=== PATIENT | male | born 1945 | race Caucasian/White ===

== ENCOUNTER 2019-12-25 08:42 | Emergency (ER) | payer MEDICARE, OTHER ==
[~2019-12-25] VITALS: Ht 177.8 cm; Wt 84.0 kg
[~2019-12-25 08:42] MED LIST: LEVO750T31 PO
[2019-12-25 09:03] VITALS: BP 156/105
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
--- NOTE | 2019-12-25 09:49 | RAD ---
ELBOW RIGHT 3V History: Nonhealing wound elbow. Technique: 3 views right elbow. Comparison: None. Findings: Internal fixation olecranon fracture with posterior plate and multiple screws. Fracture line is not evident. No significant elbow joint effusion. Dystrophic calcination within the region of the distal triceps insertion. No acute fracture. Impression: 1. Internal fixation prior olecranon fracture. Electronically signed by: Guero Pickering DO (12/25/2019 9:46 AM) [id number]
[2019-12-25] MEDS ORDERED: CLIN150C14 PO (09:57)
== END 2019-12-25 10:35 | disposition home or self-care (01) ==
LOC: ER 08:42
DX: L03.113 Cellulitis of right upper limb (principal); I10 Essential (primary) hypertension; K21.9 Gastro-esophageal reflux disease without esophagitis; Z98.890 Other specified postprocedural states; E78.00 Pure hypercholesterolemia, unspecified
CPT/HCPCS: 73080; 99283

== ENCOUNTER 2021-11-18 13:32 | Emergency (ER) | payer MEDICARE ==
[~2021-11-18] VITALS: Ht 177.8 cm; Wt 85.0 kg
[~2021-11-18 13:32] MED LIST changes: +CLIN150C16 PO
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
[2021-11-18 14:15] LABS: BASO # 0.1 x10^3/uL (0.0-0.2); BASO % 1 % (0-3); EOS # 0.3 x10^3/uL (0.0-0.7); EOS % 6 % (0-3); HEMATOCRIT 36.3 % (39.0-53.0); HEMOGLOBIN 12.4 g/dL (13.0-17.5); LYMPH # 1.5 x10^3/uL (1.0-4.8); LYMPH % 34 % (24-48); MEAN CORPUSCULAR HEMOGLOBIN 34 pg (25-35); MEAN CORPUSCULAR HGB CONC 34 g/dL (31-37); MEAN CORPUSCULAR VOLUME 98 fL (79-100); MONO # 0.4 x10^3/uL (0.0-1.1); MONO % 10 % (0-9); NEUT # 2.1 x10^3/uL (1.8-7.7); NEUT % 49 % (31-73); PLATELET COUNT 225 x10^3/uL (140-400); RED BLOOD COUNT 3.69 x10^6/uL (4.30-5.70); RED CELL DISTRIBUTION WIDTH 14.1 % (11.5-14.5); WHITE BLOOD COUNT 4.3 x10^3/uL (4.0-11.0)
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
[2021-11-18 14:25] LABS: CALCIUM 8.8 mg/dL (8.5-10.1); CREATININE 0.9 mg/dL (0.7-1.3); GFR 82.5; POTASSIUM 4.6 mmol/L (3.5-5.1)
[2021-11-18] MEDS ORDERED: LIDOCAINE 1%/EPI 1:100,000 20 ML VIAL. INJ ONE (14:30)
[2021-11-18 14:31] LABS: ALBUMIN 3.6 g/dL (3.4-5.0); ALBUMIN/GLOBULIN RATIO 0.9 (1.0-1.7); TOTAL BILIRUBIN 0.6 mg/dL (0.2-1.0); TOTAL PROTEIN 7.5 g/dL (6.4-8.2)
[2021-11-18 15:41] VITALS: BP 133/63
[2021-11-18] MEDS ORDERED: BACITRACIN TOPICAL OINT PACKET. TP ONE (15:45)
== END 2021-11-18 15:58 | disposition home or self-care (01) ==
LOC: ER 13:32
DX: S01.01XA Laceration without foreign body of scalp, initial encounter (principal); I10 Essential (primary) hypertension; K21.9 Gastro-esophageal reflux disease without esophagitis; E78.00 Pure hypercholesterolemia, unspecified; N40.0 Benign prostatic hyperplasia without lower urinary tract symptoms; Y28.8XXA Contact with other sharp object, undetermined intent, initial encounter; Y93.89 Activity, other specified; Y92.89 Other specified places as the place of occurrence of the external cause; Y99.8 Other external cause status
CPT/HCPCS: 12002; 36415; 70450; 72125; 80053; 85025; 85610; 85730; 99285; J3490

== ENCOUNTER 2021-11-27 15:51 | Emergency (ER) | payer MEDICARE ==
[~2021-11-27] VITALS: Ht 175.3 cm; Wt 72.0 kg
[2021-11-27 15:52] VITALS: BP 128/70
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
== END 2021-11-27 16:15 | disposition home or self-care (01) ==
LOC: ER 15:51
DX: S01.81XD Laceration without foreign body of other part of head, subsequent encounter (principal); K21.9 Gastro-esophageal reflux disease without esophagitis; E78.00 Pure hypercholesterolemia, unspecified; I10 Essential (primary) hypertension; N40.0 Benign prostatic hyperplasia without lower urinary tract symptoms; X58.XXXD Exposure to other specified factors, subsequent encounter
CPT/HCPCS: 99281; 99284

== ENCOUNTER 2022-01-12 18:59 | Emergency (ER) | payer MEDICARE ==
[~2022-01-12] VITALS: Ht 175.3 cm; Wt 84.0 kg
--- NOTE | 2022-01-12 20:56 | RAD ---
XR ABDOMEN 2V Clinical Indication: Reason: bloating / Spl. Instructions: / History: Comparison: None. Findings: The lung bases are clear. No intraperitoneal free air is identified. There is no dilated small bowel. There is scattered air and stool in the colon. No obvious organomegaly. No radiopaque calculus or fo reign body. There is degenerative spondylosis of the thoracolumbar spine. IMPRESSION: Nonobstructive bowel gas pattern. Electronically signed by: Montez Sher MD (01/12/2022 8:53 PM) [facility]
[2022-01-12] MEDS ORDERED: SIMETHICONE 80 MG TAB.CHEW PO STA (21:04)
[2022-01-12] MEDS ORDERED: MAGNESIUM CITRATE 296 ML SOLUTION. PO ONE (21:15)
[2022-01-12] MEDS ORDERED: POLY119P4 PO (21:34)
--- NOTE | 2022-01-12 21:34 | PHYS DOC ---
Past Medical History Past Medical History: GERD, High Cholesterol, Hypertension, Other Additional Past Medical Histor: BPH Past Surgical History: Tonsillectomy, Other Additional Past Surgical Histo: WRIST Smoking Status: Never Smoker Alcohol Use: None Drug Use: None General Adult EDM: Chief Complaint: MULTIPLE COMPLAINTS HPI: HPI: Patient is a 76 year old male who presents to the ED today complaining of abdominal bloating/gas, symptoms for 2 days. Denies any pain. Denies any nausea, vomiting. Reports last bowel movement was yesterday and normal. Patient is also complaining of a rash on his left thigh, symptoms began 4 days ago. Denies any new soaps, laundry detergents or any source for this rash. Review of Systems: Review of Systems: Constitutional: Denies fever or chills. [] Eyes: Denies change in visual acuity. [] HENT: Denies nasal congestion or sore throat. [] Respiratory: Denies cough or shortness of breath. [] Cardiovascular: Denies chest pain or edema. [] GI: Reports abdominal bloating, denies nausea, vomiting, bloody stools or diarrhea. [] : Denies dysuria. [] Musculoskeletal: Denies back pain or joint pain. [] Integument: Reports rash on the left thigh Neurologic: Denies headache, focal weakness or sensory changes. [] Endocrine: Denies polyuria or polydipsia. [] Psychiatric: Denies depression or anxiety. [] Heart Score: C/O Chest Pain: N/A Risk Factors: Risk Factors: DM, Current or recent (<one month) smoker, HTN, HLP, family history of CAD, obesity. Risk Scores: Score 0 - 3: 2.5% MACE over next 6 weeks - Discharge Home Score 4 - 6: 20.3% MACE over next 6 weeks - Admit for Clinical Observation Score 7 - 10: 72.7% MACE over next 6 weeks - Early Invasive Strategies Current Medications: Current Medications Medications (Trade) Dose Ordered Sig/Nura Start Time Stop Time Status Last Admin Dose Admin Magnesium Citrate (Citroma) 296 ml 1X ONCE 01/12/22 21:15 01/12/22 21:16 DC 01/12/22 21:25 296 ML Simethicone (Gas-X) 80 mg 1X STAT 01/12/22 21:04 01/12/22 21:07 DC 01/12/22 21:25 80 MG Allergies: Allergies: Allergies Coded Allergies Type Severity Reaction Last Updated Verified No Known Drug Allergies 03/09/18 No Physical Exam: PE: Constitutional: Well developed, well nourished, no acute distress, non-toxic appearance. [] HENT: Normocephalic, atraumatic, bilateral external ears normal, oropharynx moist, no oral exudates, nose normal. [] Eyes: PERRLA, EOMI, conjunctiva normal, no discharge. [] Neck: Normal range of motion, no tenderness, supple, no stridor. [] Cardiovascular:Heart rate regular rhythm, no murmur [] Lungs & Thorax: Bilateral breath sounds clear to auscultation [] Abdomen: Bloated abdomen. Bowel sounds normal, soft, no tenderness, no masses, no pulsatile masses. [] Skin: Left thigh with scattered areas of crusted noninfected dark rashes. Back: No tenderness, no CVA tenderness. [] Extremities: No tenderness, no cyanosis, no clubbing, ROM intact, no edema. [] Neurologic: Alert and oriented X 3, normal motor function, normal sensory function, no focal deficits noted. [] Psychologic: Affect normal, judgement normal, mood normal. [] Current Patient Data: Vital Signs: Vital Signs Date Time Temp Pulse Resp B/P (MAP) Pulse Ox O2 Delivery O2 Flow Rate FiO2 01/12/22 19:25 98.2 84 18 149/100 (116) 97 Room Air 98.2 EKG: EKG: [] Radiology/Procedures: Radiology/Procedures: [] Course & Med Decision Making: Course & Med Decision Making Pertinent Labs and Imaging studies reviewed. (See chart for details) This a 76-year-old male patient presenting to the ED today complaining of abdominal bloating/gas, symptoms since yesterday, also complaining of a rash on the left thigh for 4 days. Recommended he follows up with molding machine operator helper for this rash. Provided from Synalar cream and recommending Benadryl. Abdomen supine and upright x-rays noted for gas and constipation. Discussed constipation prevention, management and OTC remedies. Encouraged to increase fiber intake as well as water intake Dragon Disclaimer: Dragfam Disclaimer: This electronic medical record was generated, in whole or in part, using a voice recognition dictation system. Departure Departure Impression: Primary Impression: Rash Additional Impression: Constipation Qualified Codes: K59.00 - Constipation, unspecified Disposition: HOME / SELF CARE / HOMELESS Condition: STABLE Referrals: Abby EDWARDS MD (PCP) follow up with a molding machine operator helper and your primary care doctor in 1 week Patient Instructions: Constipation, Adult, Rash Additional Instructions: You have a rash on the left leg please follow up with a molding machine operator helper in one 1-2 weeks. Please increase you dietary fiber intake to help reduce constipation. Take Miralax to reduce constipation. Scripts Triamcinolone Acetonide (TRIAMCINOLONE ACETONIDE 0.1% CREAM) 15 Gm Cream..g. 1 ZAC TP BID, #30 GM Prov: MEENA BLANCHARD APRN 01/12/22 Polyethylene Glycol 3350 (MIRALAX) 119 Gm Powder 17 GM PO DAILY for constipation, #255 GM 0 Refills dissolve in water Prov: MEENA BLANCHARD APRN 01/12/22 MEENA BLANCHARD APRN Jan 12, 2022 21:34
[2022-01-12] MEDS ORDERED: TRIA15CR3 TP (21:48)
[2022-01-12 22:00] VITALS: BP 175/72
== END 2022-01-12 22:10 | disposition home or self-care (01) ==
LOC: ER 18:59
DX: K59.00 Constipation, unspecified (principal); R21 Rash and other nonspecific skin eruption; K21.9 Gastro-esophageal reflux disease without esophagitis; E78.00 Pure hypercholesterolemia, unspecified; I10 Essential (primary) hypertension
CPT/HCPCS: 74021; 99285-25

== ENCOUNTER 2022-01-16 10:08 | Inpatient (IN) | payer MEDICARE ==
[~2022-01-16] VITALS: Ht 175.3 cm; Wt 84.0 kg
[~2022-01-16 10:08] MED LIST changes: +POLY119P4 PO; +TRIA15CR3 TP
--- NOTE | 2022-01-16 12:14 | ED.ADGEN ---
Past Medical History Past Medical History: GERD, High Cholesterol, Hypertension, Other Additional Past Medical Histor: BPH Past Surgical History: Tonsillectomy, Other Additional Past Surgical Histo: WRIST Smoking Status: Never Smoker Alcohol Use: None Drug Use: None General Adult EDM: Chief Complaint: CONSTIPATION HPI: HPI: Patient is a 76 year old male presenting for constipation. Patient was seen here 4 days ago for the same. Was sent home with magnesium citrate and MiraLAX. Patient states he has had some liquidy stools but nothing solid. States he has not a lot of gas intermittent distention. Has had decreased appetite since symptoms are started, but no vomiting. Patient states the lump in his left groin is concerned he might have a hernia. Review of Systems: Review of Systems: All other systems within normal limits except for as noted in the HPI Current Medications: Current Medications Medications (Trade) Dose Ordered Sig/Nura Start Time Stop Time Status Last Admin Dose Admin Info (CONTRAST GIVEN -- Rx MONITORING) 1 each PRN DAILY PRN 01/16/22 13:00 01/18/22 12:59 Iohexol (Omnipaque 300 Mg/ml) 75 ml 1X ONCE 01/16/22 13:00 01/16/22 13:03 DC 01/16/22 13:27 75 ML Allergies: Allergies: Allergies Coded Allergies Type Severity Reaction Last Updated Verified No Known Drug Allergies 03/09/18 No Physical Exam: PE: Constitutional: Well developed, well nourished, no acute distress, non-toxic appearance. [] HENT: Normocephalic, atraumatic, bilateral external ears normal, nose normal. [] Eyes: PERRLA, conjunctiva normal, no discharge. [] Neck: No rigidity, supple, no stridor. [] Cardiovascular: Regular rate and rhythm, brisk cap refill [] Lungs & Thorax: Non labored symmetric respirations, no tachypnea or respiratory distress [] Abdomen: Soft, nondistended no point tenderness on exam, large erythematous mass in left inguinal area, with erythema extending to testicles and penis. Skin: Warm, dry, no erythema, no rash. [] Back: Unremarkable Extremities: No deformities, range of motion grossly intact, no lower extremity edema [] Neurologic: Alert and oriented X 3, no focal deficits noted. [] Psychologic: Affect normal, judgement normal, mood normal. [] Current Patient Data: Labs: Laboratory Tests Test 01/16/22 12:35 01/16/22 13:10 White Blood Count 9.2 x10^3/uL (4.0-11.0) Red Blood Count 3.59 x10^6/uL (4.30-5.70) L Hemoglobin 11.9 g/dL (13.0-17.5) L Hematocrit 34.5 % (39.0-53.0) L Mean Corpuscular Volume 96 fL (79-100) Mean Corpuscular Hemoglobin 33 pg (25-35) Mean Corpuscular Hemoglobin Concent 34 g/dL (31-37) Red Cell Distribution Width 13.9 % (11.5-14.5) Platelet Count 310 x10^3/uL (140-400) Neutrophils (%) (Auto) 71 % (31-73) Lymphocytes (%) (Auto) 15 % (24-48) L Monocytes (%) (Auto) 13 % (0-9) H Eosinophils (%) (Auto) 1 % (0-3) Basophils (%) (Auto) 1 % (0-3) Neutrophils # (Auto) 6.5 x10^3/uL (1.8-7.7) Lymphocytes # (Auto) 1.4 x10^3/uL (1.0-4.8) Monocytes # (Auto) 1.2 x10^3/uL (0.0-1.1) H Eosinophils # (Auto) 0.1 x10^3/uL (0.0-0.7) Basophils # (Auto) 0.1 x10^3/uL (0.0-0.2) Sodium Level 131 mmol/L (136-145) L Potassium Level 3.6 mmol/L (3.5-5.1) Chloride Level 96 mmol/L (98-107) L Carbon Dioxide Level 30 mmol/L (21-32) Anion Gap 5 (6-14) L Blood Urea Nitrogen 11 mg/dL (8-26) Creatinine 1.0 mg/dL (0.7-1.3) Estimated GFR (Cockcroft-Gault) 73.0 BUN/Creatinine Ratio 11 (6-20) Glucose Level 110 mg/dL (70-99) H Lactic Acid Level 1.0 mmol/L (0.4-2.0) Calcium Level 8.7 mg/dL (8.5-10.1) Phosphorus Level 3.3 mg/dL (2.6-4.7) Magnesium Level 2.4 mg/dL (1.8-2.4) Total Bilirubin 1.0 mg/dL (0.2-1.0) Aspartate Amino Transferase (AST) 45 U/L (15-37) H Alanine Aminotransferase (ALT) 39 U/L (16-63) Alkaline Phosphatase 73 U/L (46-116) Total Protein 8.0 g/dL (6.4-8.2) Albumin 3.3 g/dL (3.4-5.0) L Albumin/Globulin Ratio 0.7 (1.0-1.7) L Lipase 78 U/L (73-393) Urine Collection Type Unknown Urine Color Yellow Urine Clarity Clear Urine pH 7.0 (<5.0-8.0) Urine Specific [place] 1.010 (1.000-1.030) Urine Protein Negative mg/dL (NEG-TRACE) Urine Glucose (UA) Negative mg/dL (NEG) Urine Ketones (Stick) Negative mg/dL (NEG) Urine Blood Trace (NEG) Urine Nitrite Negative (NEG) Urine Bilirubin Negative (NEG) Urine Urobilinogen Dipstick 0.2 mg/dL (0.2 mg/dL) Urine Leukocyte Esterase Negative (NEG) Urine RBC 0 /HPF (0-2) Urine WBC 0 /HPF (0-4) Urine Bacteria 0 /HPF (0-FEW) Laboratory Tests 01/16/22 12:35 Laboratory Tests 01/16/22 12:35 Vital Signs: Vital Signs Date Time Temp Pulse Resp B/P (MAP) Pulse Ox O2 Delivery O2 Flow Rate FiO2 01/16/22 13:37 74 167/71 (103) 97 Room Air 01/16/22 11:49 20 01/16/22 11:13 98.6 98.6 EKG: EKG: [] Heart Score: C/O Chest Pain: No Risk Factors: Risk Factors: DM, Current or recent (<one month) smoker, HTN, HLP, family history of CAD, obesity. Risk Scores: Score 0 - 3: 2.5% MACE over next 6 weeks - Discharge Home Score 4 - 6: 20.3% MACE over next 6 weeks - Admit for Clinical Observation Score 7 - 10: 72.7% MACE over next 6 weeks - Early Invasive Strategies Radiology/Procedures: Radiology/Procedures: [facility] [address] [place], [place] [id number] IMAGING REPORT Signed PATIENT: TATI VARGAS ACCOUNT: [id number] : 1945 LOCATION: ER AGE: 76 SEX: M EXAM STATUS: REG ER ORD. PHYSICIAN: PADMINI BELLAMY MD REASON: left inguinal hernia and testicle swelling, scan through testicles PROCEDURE: CT ABD PELV W/ IV CONTRST ONLY PQRS Compliance Statement: One or more of the following individualized dose reduction techniques were utilized for this examination: 1. Automated exposure control 2. Adjustment of the mA and/or kV according to patient size 3. Use of iterative reconstruction technique Exam performed: CT abdomen and pelvis with contrast HISTORY: Left inguinal hernia and testicular swelling. DATE OF SERVICE: 01/16/2022. COMPARISON: None available TECHNIQUE: Contiguous helical acquisitions are obtained through the abdomen and pelvis during intravenous administration of 75 cc of Omnipaque 300. Sagittal and coronal reformatted images are obtained and reviewed. FINDINGS: Pleural-based 9 mm nodularity left lung base (best seen on axial image 4/85). The right lung base is clear. The visualized heart appears normal. Tiny hiatal hernia. The liver, spleen and pancreas appears normal. Cholelithiasis. Both adrenal glands and bilateral kidneys are normal in size with symmetric excretion of contrast via both kidneys. There is no hydronephrosis or nephrolithiasis. Small bowel loops appear normal. There is scattered stool in the colon. Diffuse colonic diverticulosis. The urinary bladder is distended. No free fluid. There is a large left inguinal scrotal hernia containing a loop of colon without proximal dilatation. There is fluid in the pericardial sac with wall thickening and edema of the left hemiscrotum. There is also a tiny fat-containing right in guinal hernia. Interrogation of bone windows is unremarkable. There are spondylotic changes and multilevel degenerative disc changes. IMPRESSION: 1. Large left inguinal scrotal hernia containing a loop of colon with mild fluid and inflammatory changes as well as skin thickening of the left scrotum. Incarcerated hernia suspected. Correlate clinically. 2. Cholelithiasis. 3. A 9 mm nodularity left lung base. While this could be related to pleural thickening, however evaluation with dedicated CT chest may be obtained to rule out additional pulmonary nodules. Electronically signed by: Sharmin Graves MD (01/16/2022 2:04 PM) [facility] DICTATED and SIGNED BY: SHARMIN GRAVES MD DATE: 01/16/22 1354 [] Course & Med Decision Making: Course & Med Decision Making Pertinent Labs and Imaging studies reviewed. (See chart for details) Consult placed to general surgery, recommends admission to hospitalist and n.p. o. status [] Dragon Disclaimer: Dragon Disclaimer: This electronic medical record was generated, in whole or in part, using a voice recognition dictation system. Departure Departure Impression: Primary Impression: Incarcerated left inguinal hernia Disposition: ADMITTED INPATIENT Admitting Physician: ANDREW Condition: STABLE Referrals: Abby EDWARDS MD (PCP) PADMINI BELLAMY MD Jan 16, 2022 12:14
[2022-01-16 12:45] LABS: BASO # 0.1 x10^3/uL (0.0-0.2); BASO % 1 % (0-3); EOS # 0.1 x10^3/uL (0.0-0.7); EOS % 1 % (0-3); HEMATOCRIT 34.5 % (39.0-53.0); HEMOGLOBIN 11.9 g/dL (13.0-17.5); LYMPH # 1.4 x10^3/uL (1.0-4.8); LYMPH % 15 % (24-48); MEAN CORPUSCULAR HEMOGLOBIN 33 pg (25-35); MEAN CORPUSCULAR HGB CONC 34 g/dL (31-37); MEAN CORPUSCULAR VOLUME 96 fL (79-100); MONO # 1.2 x10^3/uL (0.0-1.1); MONO % 13 % (0-9); NEUT # 6.5 x10^3/uL (1.8-7.7); NEUT % 71 % (31-73); PLATELET COUNT 310 x10^3/uL (140-400); RED BLOOD COUNT 3.59 x10^6/uL (4.30-5.70); RED CELL DISTRIBUTION WIDTH 13.9 % (11.5-14.5); WHITE BLOOD COUNT 9.2 x10^3/uL (4.0-11.0)
[2022-01-16 12:53] LABS: CALCIUM 8.7 mg/dL (8.5-10.1); POTASSIUM 3.6 mmol/L (3.5-5.1)
[2022-01-16 12:58] LABS: ALBUMIN 3.3 g/dL (3.4-5.0); ALBUMIN/GLOBULIN RATIO 0.7 (1.0-1.7); MAGNESIUM 2.4 mg/dL (1.8-2.4); PHOSPHORUS 3.3 mg/dL (2.6-4.7)
[2022-01-16] MEDS ORDERED: CONTRAST GIVEN. MC PRN (13:00)
[2022-01-16] MEDS ORDERED: IOHEXOL 300 MG/ML 100ML VIAL. IV ONE (13:00)
--- NOTE | 2022-01-16 14:06 | RAD ---
PQRS Compliance Statement: One or more of the following individualized dose reduction techniques were utilized for this examinat ion: 1. Automated exposure control 2. Adjustment of the mA and/or kV according to patient size 3. Use of iterative reconstruction technique Exam performed: CT abdomen and pelvis with contrast HISTORY: Left inguinal hernia and testicular swelling. DATE OF SERVICE: 01/16/2022. COMPARISON: None available TECHNIQUE: Contiguous helical acquisitions are obtained through the abdomen and pelvis during intrave nous administration of 75 cc of Omnipaque 300. Sagittal and coronal reformatted images are obtained a nd reviewed. FINDINGS: Pleural-based 9 mm nodularity left lung base (best seen on axial image 4/85). The right lung base is clear. The visualized heart appears normal. Tiny hiatal hernia. The liver, spleen and pancreas appears normal. Cholelithiasis. Both adrenal glands and bilateral kidn eys are normal in size with symmetric excretion of contrast via both kidneys. There is no hydronephro sis or nephrolithiasis. Small bowel loops appear normal. There is scattered stool in the colon. Diffu se colonic diverticulosis. The urinary bladder is distended. No free fluid. There is a large left inguinal scrotal hernia containing a loop of colon without proximal dilatation. There is fluid in the pericardial sac with wall thickening and edema of the left hemiscrotum. There is also a tiny fat-containing right inguinal hernia. Interrogation of bone windows is unremarkable. T here are spondylotic changes and multilevel degenerative disc changes. IMPRESSION: 1. Large left inguinal scrotal hernia containing a loop of colon with mild fluid and inflammatory ch anges as well as skin thickening of the left scrotum. Incarcerated hernia suspected. Correlate clinic ally. 2. Cholelithiasis. 3. A 9 mm nodularity left lung base. While this could be related to pleural thickening, however eval uation with dedicated CT chest may be obtained to rule out additional pulmonary nodules. Electronically signed by: Sharmin Graves MD (01/16/2022 2:04 PM) [facility]
[2022-01-16 14:13] LABS: BILIRUBIN,URINE NEGATIVE (NEG); CLARITY,URINE CLEAR; COLOR,URINE YELLOW
[2022-01-16 14:14] LABS: BACTERIA,URINE 0 /HPF (0-FEW); NITRITE,URINE NEGATIVE (NEG); PROTEIN,URINE NEGATIVE (NEG-TRACE); RBC,URINE 0 /HPF (0-2); UROBILINOGEN,URINE 0.2 mg/dL (0.2 mg/dL); WBC,URINE 0 /HPF (0-4)
[2022-01-16] MEDS ORDERED: ONDANSETRON PF 4 MG/2 ML VIAL. IVP PRN ×2 (15:45→16:15)
[2022-01-16] MEDS ORDERED: MORPHINE SULFATE 4 MG/ML INJ. IVP PRN (15:45)
[2022-01-16] MEDS ORDERED: MORPHINE SULFATE 2 MG/ML INJ. IV PRN ×2 (16:15)
[2022-01-16] MEDS ORDERED: CALCIUM CARBONATE 500 MG TAB.CHEW PO PRN (16:15)
[2022-01-16] MEDS ORDERED: ELECTROLYTE (NON-ICU) PROTOCOL. MC PRN (16:15)
[2022-01-16] MEDS: IV NORMAL SALINE 1000ML BAG 1,000 ML IV SCH (16:55)
[2022-01-16 17:45] VITALS: BP 140/53
[2022-01-16] MEDS ORDERED: ATOR40TA59 PO (17:45)
[2022-01-16] MEDS ORDERED: PANT40TA6 PO (17:45)
[2022-01-16] MEDS ORDERED: TAMSULOSIN (17:45)
[2022-01-16] MEDS ORDERED: AMLO-186 PO (17:45)
[2022-01-16 17:48] LABS: INFLUENZA A PATIENT NEGATIVE (NEGATIVE); INFLUENZA B PATIENT NEGATIVE (NEGATIVE)
--- NOTE | 2022-01-16 18:29 | PDOC1 ---
History and Physical Date of Service: DOS: DATE: 01/16/22 TIME: 18:24 Chief Complaint: Chief Complain: constipation History of Present Illness: HPI: 76-year-old male presented today for constipation recently seen for the same given mag citrate, miralax. Some liquid stool nothing substantial. Decreased p.o. intake. Concerned about a lump in left groin. Imaging concerning for hernia in the left groin. Admitted. Surgery consult. Lab work pretty unremarkable Past Medical/Surgical History: PMH/PSH: Past Medical History: GERD, High Cholesterol, Hypertension Additional Past Medical Histor: BPH Past Surgical History: Tonsillectomy Additional Past Surgical Histo: WRIST Smoking Status: Never Smoker Alcohol Use: None Drug Use: None Allergies: Allergies: Coded Allergies: No Known Drug Allergies (Unverified , 03/09/18) Family History: Family History: HTN Current Medications: Current Medications Current Medications Iohexol (Omnipaque 300 Mg/ml) 75 ml 1X ONCE IV Last administered on 01/16/22at 13:27; Start 01/16/22 at 13:00; Stop 01/16/22 at 13:03; Status DC Info (CONTRAST GIVEN -- Rx MONITORING) 1 each PRN DAILY PRN MC SEE COMMENTS; Start 01/16/22 at 13:00; Stop 01/18/22 at 12:59 Fentanyl Citrate (Fentanyl 2ml Vial) 25 mcg PRN Q5MIN PRN IVP MILD PAIN 1-3; Start 01/17/22 at 06:00; Stop 01/18/22 at 05:59 Fentanyl Citrate (Fentanyl 2ml Vial) 50 mcg PRN Q5MIN PRN IVP MODERATE PAIN 4- 6; Start 01/17/22 at 06:00; Stop 01/18/22 at 05:59 Morphine Sulfate (Morphine Sulfate) 1 mg PRN Q10MIN PRN IVP SEVERE PAIN 7-10; Start 01/17/22 at 06:00; Stop 01/18/22 at 05:59 Ringer's Solution 1,000 ml @ 30 mls/hr Q24H IV ; Start 01/17/22 at 06:00; Stop 01/17/22 at 17:59 Hydromorphone HCl (Dilaudid) 0.5 mg PRN Q10MIN PRN IVP SEVERE PAIN 7-10, 2nd CHOICE; Start 01/17/22 at 06:00; Stop 01/18/22 at 05:59 Prochlorperazine Edisylate (Compazine) 5 mg PACU PRN PRN IVP NAUSEA, MRX1; Start 01/17/22 at 06:00; Stop 01/18/22 at 05:59 Ondansetron HCl (Zofran) 4 mg PRN Q8HRS PRN IVP NAUSEA/VOMITING; Start 01/16/22 at 15:45; Stop 01/17/22 at 15:44 Morphine Sulfate (Morphine Sulfate) 4 mg PRN Q2HR PRN IVP PAIN; Start 01/16/22 at 15:45; Stop 01/17/22 at 15:44 Sodium Chloride 1,000 ml @ 100 mls/hr Q10H IV Last administered on 01/16/22at 16:55; Start 01/16/22 at 15:45; Stop 01/17/22 at 15:44 Ondansetron HCl (Zofran) 4 mg PRN Q6HRS PRN IVP NAUSEA/VOMITING; Start 01/16/22 at 16:15 Calcium Carbonate/ Glycine (Tums) 500 mg PRN Q3HRS PRN PO UPSET STOMACH; Start 01/16/22 at 16:15 Info (Non-Icu Electrolyte Protocol) 1 ea PRN DAILY PRN MC SEE COMMENTS; Start 01/16/22 at 16:15 Morphine Sulfate (Morphine Sulfate) 1 mg PRN Q1HR PRN IV PAIN; Start 01/16/22 at 16:15 Morphine Sulfate (Morphine Sulfate) 2 mg PRN Q1HR PRN IV PAIN; Start 01/16/22 at 16:15 Acetaminophen (Tylenol) 650 mg PRN Q6HRS PRN PO Headaches, Temp > 101.5F; Start 01/16/22 at 16:15 Senna/Docusate Sodium (Senna Plus) 1 tab BID PO ; Start 01/16/22 at 21:00 Active Scripts Active Triamcinolone Acetonide 0.1% Cream (Triamcinolone Acetonide) 15 Gm Cream..g. 1 Radha TP BID Reported [Tamsulosin] 0.4 Cap Atorvastatin Calcium 40 Mg Tablet 1 Tab PO DAILY Pantoprazole Sodium 40 Mg Tablet.dr 1 Tab PO DAILY Amlodipine Besylate 5 Mg Tablet 1 Tab PO DAILY ROS: Review of Systems Review of System Unless noted in HPI 14 point review of systems was negative Physical Exam: Vital Signs: Vital Signs Date Time Temp Pulse Resp B/P (MAP) Pulse Ox O2 Delivery O2 Flow Rate FiO2 01/16/22 17:45 99.3 71 20 140/53 (82) Room Air 99.3 01/16/22 16:19 98 Physcial Exam: GEN: No apparent distress. Alert and oriented HEENT: Normal cephalic, atraumatic, external auditory canals are patent EYES: Extraocular muscles are intact, pupil are equally round and reactive to light and accommodation MUSCULOSKELETAL: Well developed , well nourished, good range of motion ENDOCRINE: No thyromegaly was palpated LYMPHATICS: No cervical chain or axillary nodes were noted HEMATOPOIETIC: No bruising NECK: Supple, no JVD, no thyromegaly was noted LUNGS: Clear to auscultation in all lung kwan without rhonchi or wheezing HEART: RRR, S!, S2 present. Peripheral pulses intact, no obvious murmurs noted ABDOMEN: Soft, nontender. Positive bowel sounds, no organomegaly, normal bowel sounds left groin with apparent swelling/mass when compared with other side EXTREMITIES: Without clubbing, cyanosis, or edema. Pedal pulses intact. Negative Homans sign NEUROLOGIC: Normal speech and tone. A&O x 3, moves all extremities, no obvious focal deficits PSYCHIATRIC: Normal affect, normal mood. Stable SKIN: No ulcerations or rashes, good skin turgor, no jaundice VASCULAR: Good capillary refill, neurovascular bundle appears to be intact Labs: Labs: Laboratory Tests Test 01/16/22 12:35 01/16/22 13:10 01/16/22 17:00 White Blood Count 9.2 x10^3/uL (4.0-11.0) Red Blood Count 3.59 x10^6/uL (4.30-5.70) Hemoglobin 11.9 g/dL (13.0-17.5) Hematocrit 34.5 % (39.0-53.0) Mean Corpuscular Volume 96 fL (79-100) Mean Corpuscular Hemoglobin 33 pg (25-35) Mean Corpuscular Hemoglobin Concent 34 g/dL (31-37) Red Cell Distribution Width 13.9 % (11.5-14.5) Platelet Count 310 x10^3/uL (140-400) Neutrophils (%) (Auto) 71 % (31-73) Lymphocytes (%) (Auto) 15 % (24-48) Monocytes (%) (Auto) 13 % (0-9) Eosinophils (%) (Auto) 1 % (0-3) Basophils (%) (Auto) 1 % (0-3) Neutrophils # (Auto) 6.5 x10^3/uL (1.8-7.7) Lymphocytes # (Auto) 1.4 x10^3/uL (1.0-4.8) Monocytes # (Auto) 1.2 x10^3/uL (0.0-1.1) Eosinophils # (Auto) 0.1 x10^3/uL (0.0-0.7) Basophils # (Auto) 0.1 x10^3/uL (0.0-0.2) Sodium Level 131 mmol/L (136-145) Potassium Level 3.6 mmol/L (3.5-5.1) Chloride Level 96 mmol/L (98-107) Carbon Dioxide Level 30 mmol/L (21-32) Anion Gap 5 (6-14) Blood Urea Nitrogen 11 mg/dL (8-26) Creatinine 1.0 mg/dL (0.7-1.3) Estimated GFR (Cockcroft-Gault) 73.0 BUN/Creatinine Ratio 11 (6-20) Glucose Level 110 mg/dL (70-99) Lactic Acid Level 1.0 mmol/L (0.4-2.0) Calcium Level 8.7 mg/dL (8.5-10.1) Phosphorus Level 3.3 mg/dL (2.6-4.7) Magnesium Level 2.4 mg/dL (1.8-2.4) Total Bilirubin 1.0 mg/dL (0.2-1.0) Aspartate Amino Transf (AST/SGOT) 45 U/L (15-37) Alanine Aminotransferase (ALT/SGPT) 39 U/L (16-63) Alkaline Phosphatase 73 U/L (46-116) Total Protein 8.0 g/dL (6.4-8.2) Albumin 3.3 g/dL (3.4-5.0) Albumin/Globulin Ratio 0.7 (1.0-1.7) Lipase 78 U/L (73-393) Urine Collection Type Unknown Urine Color Yellow Urine Clarity Clear Urine pH 7.0 (<5.0-8.0) Urine Specific [place] 1.010 (1.000-1.030) Urine Protein Negative mg/dL (NEG-TRACE) Urine Glucose (UA) Negative mg/dL (NEG) Urine Ketones (Stick) Negative mg/dL (NEG) Urine Blood Trace (NEG) Urine Nitrite Negative (NEG) Urine Bilirubin Negative (NEG) Urine Urobilinogen Dipstick 0.2 mg/dL (0.2 mg/dL) Urine Leukocyte Esterase Negative (NEG) Urine RBC 0 /HPF (0-2) Urine WBC 0 /HPF (0-4) Urine Bacteria 0 /HPF (0-FEW) Influenza Type A Antigen Negative (NEGATIVE) Influenza Type B Antigen Negative (NEGATIVE) SARS-CoV-2 Antigen (Rapid) Negative (NEGATIVE) Laboratory Tests Test 01/16/22 12:35 01/16/22 13:10 01/16/22 17:00 White Blood Count 9.2 x10^3/uL (4.0-11.0) Red Blood Count 3.59 x10^6/uL (4.30-5.70) Hemoglobin 11.9 g/dL (13.0-17.5) Hematocrit 34.5 % (39.0-53.0) Mean Corpuscular Volume 96 fL (79-100) Mean Corpuscular Hemoglobin 33 pg (25-35) Mean Corpuscular Hemoglobin Concent 34 g/dL (31-37) Red Cell Distribution Width 13.9 % (11.5-14.5) Platelet Count 310 x10^3/uL (140-400) Neutrophils (%) (Auto) 71 % (31-73) Lymphocytes (%) (Auto) 15 % (24-48) Monocytes (%) (Auto) 13 % (0-9) Eosinophils (%) (Auto) 1 % (0-3) Basophils (%) (Auto) 1 % (0-3) Neutrophils # (Auto) 6.5 x10^3/uL (1.8-7.7) Lymphocytes # (Auto) 1.4 x10^3/uL (1.0-4.8) Monocytes # (Auto) 1.2 x10^3/uL (0.0-1.1) Eosinophils # (Auto) 0.1 x10^3/uL (0.0-0.7) Basophils # (Auto) 0.1 x10^3/uL (0.0-0.2) Sodium Level 131 mmol/L (136-145) Potassium Level 3.6 mmol/L (3.5-5.1) Chloride Level 96 mmol/L (98-107) Carbon Dioxide Level 30 mmol/L (21-32) Anion Gap 5 (6-14) Blood Urea Nitrogen 11 mg/dL (8-26) Creatinine 1.0 mg/dL (0.7-1.3) Estimated GFR (Cockcroft-Gault) 73.0 BUN/Creatinine Ratio 11 (6-20) Glucose Level 110 mg/dL (70-99) Lactic Acid Level 1.0 mmol/L (0.4-2.0) Calcium Level 8.7 mg/dL (8.5-10.1) Phosphorus Level 3.3 mg/dL (2.6-4.7) Magnesium Level 2.4 mg/dL (1.8-2.4) Total Bilirubin 1.0 mg/dL (0.2-1.0) Aspartate Amino Transf (AST/SGOT) 45 U/L (15-37) Alanine Aminotransferase (ALT/SGPT) 39 U/L (16-63) Alkaline Phosphatase 73 U/L (46-116) Total Protein 8.0 g/dL (6.4-8.2) Albumin 3.3 g/dL (3.4-5.0) Albumin/Globulin Ratio 0.7 (1.0-1.7) Lipase 78 U/L (73-393) Urine Collection Type Unknown Urine Color Yellow Urine Clarity Clear Urine pH 7.0 (<5.0-8.0) Urine Specific [place] 1.010 (1.000-1.030) Urine Protein Negative mg/dL (NEG-TRACE) Urine Glucose (UA) Negative mg/dL (NEG) Urine Ketones (Stick) Negative mg/dL (NEG) Urine Blood Trace (NEG) Urine Nitrite Negative (NEG) Urine Bilirubin Negative (NEG) Urine Urobilinogen Dipstick 0.2 mg/dL (0.2 mg/dL) Urine Leukocyte Esterase Negative (NEG) Urine RBC 0 /HPF (0-2) Urine WBC 0 /HPF (0-4) Urine Bacteria 0 /HPF (0-FEW) Influenza Type A Antigen Negative (NEGATIVE) Influenza Type B Antigen Negative (NEGATIVE) SARS-CoV-2 Antigen (Rapid) Negative (NEGATIVE) Assessment/Plan Assessment/Plan Ventral hernia incarcerated, history GERD hypertension hyperlipidemia -Presented today with constipation. had recently seen here for the same. Concerned about left groin -Imaging revealed concern for incarcerated hernia -Surgery consult -N.p.o. -We will hold off DVT prophylaxis in event of surgical intervention -Home meds as indicated Justifications for Admission Other Justification BRAXTON BURGESS MD Jan 16, 2022 18:29
[2022-01-16 19:00] VITALS: BP 132/56
[2022-01-16] MEDS: SENNOSIDES/DOCUSATE 8.6/50MG TABLET. PO SCH (20:19)
[2022-01-16 23:00] VITALS: BP 124/53
[2022-01-17] VITALS (9 sets, daily range): BP systolic 112–134; BP diastolic 58–73
[2022-01-17] MEDS: IV NORMAL SALINE 1000ML BAG 1,000 ML IV SCH ×2 (02:11→11:45)
[2022-01-17] MEDS ORDERED: IV RINGERS,LACTATED 1000ML 1,000 ML IV SCH (06:00)
[2022-01-17] MEDS ORDERED: HYDROmorphone 2 MG/ML INJ. IVP PRN (06:00)
[2022-01-17] MEDS ORDERED: fentaNYL PF VIAL 100 MCG/2 ML VIAL IVP PRN ×2 (06:00)
[2022-01-17] MEDS ORDERED: MORPHINE SULFATE 2 MG/ML INJ. IVP PRN (06:00)
[2022-01-17] MEDS ORDERED: PROCHLORPERAZINE 10 MG/2 ML VIAL. IVP PRN (06:00)
[2022-01-17 06:34] LABS: BASO % 1 % (0-3); EOS # 0.1 x10^3/uL (0.0-0.7); EOS % 1 % (0-3); HEMATOCRIT 34.4 % (39.0-53.0); HEMOGLOBIN 11.6 g/dL (13.0-17.5); LYMPH # 1.2 x10^3/uL (1.0-4.8); LYMPH % 17 % (24-48); MEAN CORPUSCULAR HEMOGLOBIN 32 pg (25-35); MEAN CORPUSCULAR HGB CONC 34 g/dL (31-37); MEAN CORPUSCULAR VOLUME 96 fL (79-100); MONO % 14 % (0-9); NEUT % 68 % (31-73); PLATELET COUNT 279 x10^3/uL (140-400); RED BLOOD COUNT 3.58 x10^6/uL (4.30-5.70); WHITE BLOOD COUNT 7.4 x10^3/uL (4.0-11.0)
[2022-01-17] MEDS ORDERED: fentaNYL PF VIAL 100 MCG/2 ML VIAL ONE (06:46)
[2022-01-17] MEDS ORDERED: LIDOCAINE 2% PF 5 ML VIAL. ONE (06:47)
[2022-01-17] MEDS ORDERED: ONDANSETRON PF 4 MG/2 ML VIAL. ONE (06:47)
[2022-01-17] MEDS ORDERED: DEXAMETHASONE SOD PHOS 4 MG/ML VIAL ONE (06:47)
[2022-01-17] MEDS ORDERED: PROPOFOL 10 MG/ML (20ML) VIAL. IV ONE (06:47)
[2022-01-17 06:54] LABS: CALCIUM 8.5 mg/dL (8.5-10.1); CREATININE 0.9 mg/dL (0.7-1.3); GFR 82.5; POTASSIUM 3.7 mmol/L (3.5-5.1)
[2022-01-17] MEDS ORDERED: BUPIVACAINE-EPI 0.5% 30 ML VIAL KIT. ONE (07:08)
--- NOTE | 2022-01-17 07:30 | PDOC2 ---
CONSULT Date of Consult Date of Consult DATE: 01/17/22 TIME: 07:24 History of Present Illness Reason for Visit: The patient is a 76-year-old male who reported to the emergency department due to lower abdominal discomfort and constipation. He states that he came to the ER a few days ago but was released. His problems have persisted with some difficulty with bowel function. He is also concerned that he may have a hernia with a bulge in the left groin. He states that he mentioned this during his last visit to the ER. He denies any fever or chills. He denies hematochezia or melena. He denies any nausea or vomiting. His discomfort is achy in nature and in the lower abdomen and left groin. Past Medical History Past Medical History He denies Past Surgical History Past Surgical History Right inguinal hernia repair as a child Social History No ALCOHOL: none Drugs: None Current Problem List Problem List Problems Medical Problems: (1) Incarcerated left inguinal hernia Status: Acute Current Medications Current Medications Current Medications Iohexol (Omnipaque 300 Mg/ml) 75 ml 1X ONCE IV Last administered on 01/16/22at 13:27; Start 01/16/22 at 13:00; Stop 01/16/22 at 13:03; Status DC Info (CONTRAST GIVEN -- Rx MONITORING) 1 each PRN DAILY PRN MC SEE COMMENTS; Start 01/16/22 at 13:00; Stop 01/18/22 at 12:59 Fentanyl Citrate (Fentanyl 2ml Vial) 25 mcg PRN Q5MIN PRN IVP MILD PAIN 1-3; Start 01/17/22 at 06:00; Stop 01/18/22 at 05:59 Fentanyl Citrate (Fentanyl 2ml Vial) 50 mcg PRN Q5MIN PRN IVP MODERATE PAIN 4- 6; Start 01/17/22 at 06:00; Stop 01/18/22 at 05:59 Morphine Sulfate (Morphine Sulfate) 1 mg PRN Q10MIN PRN IVP SEVERE PAIN 7-10; Start 01/17/22 at 06:00; Stop 01/18/22 at 05:59 Ringer's Solution 1,000 ml @ 30 mls/hr Q24H IV ; Start 01/17/22 at 06:00; Stop 01/17/22 at 17:59 Hydromorphone HCl (Dilaudid) 0.5 mg PRN Q10MIN PRN IVP SEVERE PAIN 7-10, 2nd CHOICE; Start 01/17/22 at 06:00; Stop 01/18/22 at 05:59 Prochlorperazine Edisylate (Compazine) 5 mg PACU PRN PRN IVP NAUSEA, MRX1; Start 01/17/22 at 06:00; Stop 01/18/22 at 05:59 Ondansetron HCl (Zofran) 4 mg PRN Q8HRS PRN IVP NAUSEA/VOMITING; Start 01/16/22 at 15:45; Stop 01/17/22 at 15:44 Morphine Sulfate (Morphine Sulfate) 4 mg PRN Q2HR PRN IVP PAIN; Start 01/16/22 at 15:45; Stop 01/17/22 at 15:44 Sodium Chloride 1,000 ml @ 100 mls/hr Q10H IV Last administered on 01/17/22at 02:11; Start 01/16/22 at 15:45; Stop 01/17/22 at 15:44 Ondansetron HCl (Zofran) 4 mg PRN Q6HRS PRN IVP NAUSEA/VOMITING; Start 01/16/22 at 16:15 Calcium Carbonate/ Glycine (Tums) 500 mg PRN Q3HRS PRN PO UPSET STOMACH; Start 01/16/22 at 16:15 Info (Non-Icu Electrolyte Protocol) 1 ea PRN DAILY PRN MC SEE COMMENTS; Start 01/16/22 at 16:15 Morphine Sulfate (Morphine Sulfate) 1 mg PRN Q1HR PRN IV PAIN; Start 01/16/22 at 16:15 Morphine Sulfate (Morphine Sulfate) 2 mg PRN Q1HR PRN IV PAIN; Start 01/16/22 at 16:15 Acetaminophen (Tylenol) 650 mg PRN Q6HRS PRN PO Headaches, Temp > 101.5F; Start 01/16/22 at 16:15 Senna/Docusate Sodium (Senna Plus) 1 tab BID PO ; Start 01/16/22 at 21:00 Active Scripts Active Triamcinolone Acetonide 0.1% Cream (Triamcinolone Acetonide) 15 Gm Cream..g. 1 Radha TP BID Reported [Tamsulosin] 0.4 Cap Atorvastatin Calcium 40 Mg Tablet 1 Tab PO DAILY Pantoprazole Sodium 40 Mg Tablet.dr 1 Tab PO DAILY Amlodipine Besylate 5 Mg Tablet 1 Tab PO DAILY Allergies Allergies: Coded Allergies: No Known Drug Allergies (Unverified , 03/09/18) ROS General: No: Chills, Night Sweats, Fatigue, Malaise, Appetite, Other PSYCHOLOGICAL ROS: No: Anxiety, Behavioral Disorder, Concentration difficultie, Decreased libido, Depression, Disorientation, Hallucinations, Hostility, Irritablity, Memory difficulties, Mood Swings, Obsessive thoughts, Physical abuse, Sexual abuse, Sleep disturbances, Suicidal ideation, Other Eyes: No Blurry vision, No Decreased vision, No Double vision, No Dry eyes, No Excessive tearing, No Eye Pain, No Itchy Eyes, No Loss of vision, No Photophobia, No Scotomata, No Uses contacts, No Uses glasses, No Other ALLERGY AND IMMUNOLOGY: No: Hives, Insect Bite Sensitivity, Itchy/Watery Eyes, Nasal Congestion, Post Nasal Drip, Seasonal Allergies, Other Hematological and Lymphatic: No: Bleeding Problems, Blood Clots, Blood Transfusions, Brusing, Night Sweats, Pallor, Swollen Lymph Nodes, Other ENDOCRINE: No: Breast Changes, Galactorrhea, Hair Pattern Changes, Hot Flashes, Malaise/lethargy, Mood Swings, Palpitations, Polydipsia/polyuria, Skin Changes, Temperature Intolerance, Unexpected Weight Changes, Other Respiratory: No: Cough, Hemoptysis, Orthopnea, Pleuritic Pain, Shortness of breath, SOB with excertion, Sputum Changes, Stridor, Tachypnea, Wheezing, Other Gastrointestinal: Yes Abdominal Pain, Yes Constipation Genitourinary: No Dysuria, No Frequency, No Incontinence, No Hematuria, No Retention, No Discharge, No Urgency, No Pain, No Flank Pain, No Other, No , No , No , No , No , No , No Musculoskeletal: No Gait Disturbance, No Joint Pain, No Joint Stiffness, No Joint Swelling, No Muscle Pain, No Muscular Weakness, No Pain In:, No Swelling In:, No Other Neurological: No Behavorial Changes, No Bowel/Bladder ControlChng, No Confusion, No Dizziness, No Gait Disturbance, No Headaches, No Impaired Coord/balance, No Memory Loss, No Numbness/Tingling, No Seizures, No Speech Problems, No Tremors, No Visual Changes, No Weakness, No Other Skin: No Dry Skin, No Eczema, No Hair Changes, No Lumps, No Mole Changes, No Mottling, No Nail Changes, No Pruritus, No Rash, No Skin Lesion Changes, No Other, No Acne Physical Exam General: Alert, Oriented X3, Cooperative, No acute distress HEENT: Atraumatic Lungs: Clear to auscultation Abdomen: Soft, Other (palpable mass in left groin, significant induration, erythema) Extremities: No clubbing, No cyanosis Skin: Other (macular rash of left leg) Neuro: Normal speech, Strength at 5/5 X4 ext Psych/Mental Status: Mental status NL Vitals VITALS Vital Signs Date Time Temp Pulse Resp B/P (MAP) Pulse Ox O2 Delivery O2 Flow Rate FiO2 01/17/22 03:00 99.1 72 14 127/59 (81) 95 Room Air 99.1 Labs Labs Laboratory Tests Test 01/16/22 12:35 01/16/22 13:10 01/16/22 17:00 01/17/22 06:10 White Blood Count 9.2 x10^3/uL (4.0-11.0) 7.4 x10^3/uL (4.0-11.0) Red Blood Count 3.59 x10^6/uL (4.30-5.70) 3.58 x10^6/uL (4.30-5.70) Hemoglobin 11.9 g/dL (13.0-17.5) 11.6 g/dL (13.0-17.5) Hematocrit 34.5 % (39.0-53.0) 34.4 % (39.0-53.0) Mean Corpuscular Volume 96 fL (79-100) 96 fL (79-100) Mean Corpuscular Hemoglobin 33 pg (25-35) 32 pg (25-35) Mean Corpuscular Hemoglobin Concent 34 g/dL (31-37) 34 g/dL (31-37) Red Cell Distribution Width 13.9 % (11.5-14.5) 14.0 % (11.5-14.5) Platelet Count 310 x10^3/uL (140-400) 279 x10^3/uL (140-400) Neutrophils (%) (Auto) 71 % (31-73) 68 % (31-73) Lymphocytes (%) (Auto) 15 % (24-48) 17 % (24-48) Monocytes (%) (Auto) 13 % (0-9) 14 % (0-9) Eosinophils (%) (Auto) 1 % (0-3) 1 % (0-3) Basophils (%) (Auto) 1 % (0-3) 1 % (0-3) Neutrophils # (Auto) 6.5 x10^3/uL (1.8-7.7) 5.0 x10^3/uL (1.8-7.7) Lymphocytes # (Auto) 1.4 x10^3/uL (1.0-4.8) 1.2 x10^3/uL (1.0-4.8) Monocytes # (Auto) 1.2 x10^3/uL (0.0-1.1) 1.0 x10^3/uL (0.0-1.1) Eosinophils # (Auto) 0.1 x10^3/uL (0.0-0.7) 0.1 x10^3/uL (0.0-0.7) Basophils # (Auto) 0.1 x10^3/uL (0.0-0.2) 0.0 x10^3/uL (0.0-0.2) Sodium Level 131 mmol/L (136-145) 138 mmol/L (136-145) Potassium Level 3.6 mmol/L (3.5-5.1) 3.7 mmol/L (3.5-5.1) Chloride Level 96 mmol/L (98-107) 104 mmol/L (98-107) Carbon Dioxide Level 30 mmol/L (21-32) 25 mmol/L (21-32) Anion Gap 5 (6-14) 9 (6-14) Blood Urea Nitrogen 11 mg/dL (8-26) 13 mg/dL (8-26) Creatinine 1.0 mg/dL (0.7-1.3) 0.9 mg/dL (0.7-1.3) Estimated GFR (Cockcroft-Gault) 73.0 82.5 BUN/Creatinine Ratio 11 (6-20) Glucose Level 110 mg/dL (70-99) 79 mg/dL (70-99) Lactic Acid Level 1.0 mmol/L (0.4-2.0) Calcium Level 8.7 mg/dL (8.5-10.1) 8.5 mg/dL (8.5-10.1) Phosphorus Level 3.3 mg/dL (2.6-4.7) Magnesium Level 2.4 mg/dL (1.8-2.4) Total Bilirubin 1.0 mg/dL (0.2-1.0) Aspartate Amino Transf (AST/SGOT) 45 U/L (15-37) Alanine Aminotransferase (ALT/SGPT) 39 U/L (16-63) Alkaline Phosphatase 73 U/L (46-116) Total Protein 8.0 g/dL (6.4-8.2) Albumin 3.3 g/dL (3.4-5.0) Albumin/Globulin Ratio 0.7 (1.0-1.7) Lipase 78 U/L (73-393) Urine Collection Type Unknown Urine Color Yellow Urine Clarity Clear Urine pH 7.0 (<5.0-8.0) Urine Specific [place] 1.010 (1.000-1.030) Urine Protein Negative mg/dL (NEG-TRACE) Urine Glucose (UA) Negative mg/dL (NEG) Urine Ketones (Stick) Negative mg/dL (NEG) Urine Blood Trace (NEG) Urine Nitrite Negative (NEG) Urine Bilirubin Negative (NEG) Urine Urobilinogen Dipstick 0.2 mg/dL (0.2 mg/dL) Urine Leukocyte Esterase Negative (NEG) Urine RBC 0 /HPF (0-2) Urine WBC 0 /HPF (0-4) Urine Bacteria 0 /HPF (0-FEW) Influenza Type A Antigen Negative (NEGATIVE) Influenza Type B Antigen Negative (NEGATIVE) SARS-CoV-2 Antigen (Rapid) Negative (NEGATIVE) Laboratory Tests Test 01/16/22 12:35 01/16/22 13:10 01/16/22 17:00 01/17/22 06:10 White Blood Count 9.2 x10^3/uL (4.0-11.0) 7.4 x10^3/uL (4.0-11.0) Red Blood Count 3.59 x10^6/uL (4.30-5.70) 3.58 x10^6/uL (4.30-5.70) Hemoglobin 11.9 g/dL (13.0-17.5) 11.6 g/dL (13.0-17.5) Hematocrit 34.5 % (39.0-53.0) 34.4 % (39.0-53.0) Mean Corpuscular Volume 96 fL (79-100) 96 fL (79-100) Mean Corpuscular Hemoglobin 33 pg (25-35) 32 pg (25-35) Mean Corpuscular Hemoglobin Concent 34 g/dL (31-37) 34 g/dL (31-37) Red Cell Distribution Width 13.9 % (11.5-14.5) 14.0 % (11.5-14.5) Platelet Count 310 x10^3/uL (140-400) 279 x10^3/uL (140-400) Neutrophils (%) (Auto) 71 % (31-73) 68 % (31-73) Lymphocytes (%) (Auto) 15 % (24-48) 17 % (24-48) Monocytes (%) (Auto) 13 % (0-9) 14 % (0-9) Eosinophils (%) (Auto) 1 % (0-3) 1 % (0-3) Basophils (%) (Auto) 1 % (0-3) 1 % (0-3) Neutrophils # (Auto) 6.5 x10^3/uL (1.8-7.7) 5.0 x10^3/uL (1.8-7.7) Lymphocytes # (Auto) 1.4 x10^3/uL (1.0-4.8) 1.2 x10^3/uL (1.0-4.8) Monocytes # (Auto) 1.2 x10^3/uL (0.0-1.1) 1.0 x10^3/uL (0.0-1.1) Eosinophils # (Auto) 0.1 x10^3/uL (0.0-0.7) 0.1 x10^3/uL (0.0-0.7) Basophils # (Auto) 0.1 x10^3/uL (0.0-0.2) 0.0 x10^3/uL (0.0-0.2) Sodium Level 131 mmol/L (136-145) 138 mmol/L (136-145) Potassium Level 3.6 mmol/L (3.5-5.1) 3.7 mmol/L (3.5-5.1) Chloride Level 96 mmol/L (98-107) 104 mmol/L (98-107) Carbon Dioxide Level 30 mmol/L (21-32) 25 mmol/L (21-32) Anion Gap 5 (6-14) 9 (6-14) Blood Urea Nitrogen 11 mg/dL (8-26) 13 mg/dL (8-26) Creatinine 1.0 mg/dL (0.7-1.3) 0.9 mg/dL (0.7-1.3) Estimated GFR (Cockcroft-Gault) 73.0 82.5 BUN/Creatinine Ratio 11 (6-20) Glucose Level 110 mg/dL (70-99) 79 mg/dL (70-99) Lactic Acid Level 1.0 mmol/L (0.4-2.0) Calcium Level 8.7 mg/dL (8.5-10.1) 8.5 mg/dL (8.5-10.1) Phosphorus Level 3.3 mg/dL (2.6-4.7) Magnesium Level 2.4 mg/dL (1.8-2.4) Total Bilirubin 1.0 mg/dL (0.2-1.0) Aspartate Amino Transf (AST/SGOT) 45 U/L (15-37) Alanine Aminotransferase (ALT/SGPT) 39 U/L (16-63) Alkaline Phosphatase 73 U/L (46-116) Total Protein 8.0 g/dL (6.4-8.2) Albumin 3.3 g/dL (3.4-5.0) Albumin/Globulin Ratio 0.7 (1.0-1.7) Lipase 78 U/L (73-393) Urine Collection Type Unknown Urine Color Yellow Urine Clarity Clear Urine pH 7.0 (<5.0-8.0) Urine Specific [place] 1.010 (1.000-1.030) Urine Protein Negative mg/dL (NEG-TRACE) Urine Glucose (UA) Negative mg/dL (NEG) Urine Ketones (Stick) Negative mg/dL (NEG) Urine Blood Trace (NEG) Urine Nitrite Negative (NEG) Urine Bilirubin Negative (NEG) Urine Urobilinogen Dipstick 0.2 mg/dL (0.2 mg/dL) Urine Leukocyte Esterase Negative (NEG) Urine RBC 0 /HPF (0-2) Urine WBC 0 /HPF (0-4) Urine Bacteria 0 /HPF (0-FEW) Influenza Type A Antigen Negative (NEGATIVE) Influenza Type B Antigen Negative (NEGATIVE) SARS-CoV-2 Antigen (Rapid) Negative (NEGATIVE) Assessment/Plan Assessment/Plan 76 year old male with constipation, left groin mass, erythema; CT shows left inguinal hernia containing colon. Recommend surgical intervention, given the CT and clinical findings I explained to the patient the concern regarding the status of the colon. Depending on operative findings a partial colon resection +/- ostomy may be required with definitive repair of the hernia at a later date. The risks of surgery were discussed as well. He understands and agrees to proceed. ISABEL SALAS MD Jan 17, 2022 07:30
[2022-01-17] MEDS ORDERED: ROCURONIUM 50 MG/5 ML VIAL. ONE ×2 (07:31→08:17)
[2022-01-17] MEDS ORDERED: PIPERACILLIN/TAZOBACTAM 3.375 GM in IV NORMAL SALINE 50ML 50 ML IV STA (07:33)
[2022-01-17] MEDS ORDERED: SUGAMMADEX SODIUM 200 MG/2 ML VIAL. IVP ONE (07:45)
[2022-01-17] MEDS ORDERED: BUPIVACAINE-EPI 0.5% 30 ML VIAL KIT. INJ ONE (07:59)
[2022-01-17] MEDS ORDERED: HYDROmorphone 2 MG/ML INJ. ONE (08:52)
[2022-01-17] MEDS: SENNOSIDES/DOCUSATE 8.6/50MG TABLET. PO SCH ×2 (09:00→21:00)
--- NOTE | 2022-01-17 10:52 | NUR ---
SW following. Discussed with RN, pt from home alone, room air, NPO, rapid COVID-19 negative. Surgery following - pt had surgery today. RN advised no SW needs at this time. SW will continue to follow.
--- NOTE | 2022-01-17 11:09 | PDOC4 ---
Operative Note Operative Note Operative Note: Preoperative Diagnosis: Incarcerated left inguinal hernia with obstruction Postoperative Diagnosis: Incarcerated left inguinal hernia with obstruction, sigmoid colon infarction Procedure: Diagnostic laparoscopy, laparotomy with sigmoid colon resection, repair of incarcerated left inguinal hernia Surgeon: Miguelangel Pest Control Worker: Kan HAMM Anesthesia: General EBL: 50 mL Specimen: Sigmoid colon to pathology, left inguinal hernia sac to pathology Drains: 19 Prydeinig XIN drain to pelvis, Narinder drains to left lower quadrant and midline incisions Complications: None Indication: The patient is a 76-year-old male presented with groin pain and constipation. His evaluation identified an incarcerated large left inguinal hernia containing sigmoid colon. The plan is to proceed to the operating room for repair. He understands the potential of needing a sigmoid colon resection and the chance of a colostomy. Other risks of surgery were discussed which include bleeding, infection, visceral injury, anastomotic leak, hernia recurrence, pain, wound healing problems, potential need for additional surgery procedure. He understands and would like to proceed. Description: The patient was taken the operating room and placed supine on the operating table. General anesthesia was performed. The bilateral groins and abdomen were prepped with ChloraPrep and draped in a standard surgical manner. A small incision was made the left upper quadrant through which a visualized 5 mm trocar was inserted. Pneumoperitoneum was created and the laparoscope introduced. Two additional 5 mm trochars were placed in the left lateral abdomen. Initial inspection showed the hernia in the left inguinal region containing the sigmoid colon. Attempts were made to reduce the hernia laparoscopically however this was unsuccessful. An incision was then made in the left groin with a scalpel. Cautery dissection was carried down to the external bleak aponeurosis. The aponeurosis was opened down to the external ring. There was marked induration of the incarcerated contents in the hernia sac. The hernia sac was opened exposing the sigmoid colon. We were gradually able to release the neck of the hernia allowing for reduction of the hernia contents. The sigmoid colon did appear compromised and we elected to proceed with a laparotomy for bowel resection. A lower vertical midline incision was made in the skin with a scalpel. Cautery dissection was carried down to the fascia. The fascia and peritoneum were then divided. The sigmoid colon was readily identified including the focal area of infarction due to the hernia. The bowel was divided proximal and distal using a VIVI-75 stapling device. The mesentery of the colon segment was then dissected. Blood vessels were ligated with 2-0 Vicryl and divided. The LigaSure device assisted with mesenteric dissection. The sigmoid colon section was then fully excised and sent to pathology for evaluation. A 2 layer handsewn end-to-end anastomosis was then constructed. The posterior seromuscular layer was developed first using interrupted 3-0 Vicryl sutures. Next layer was then constructed with 3-0 PDS in running locked fashion. The anterior seromuscular was then completed with 3-0 Vicryl sutures. A 19 Prydeinig XIN drain was left in the pelvis with an exit site in the left lower quadrant port incision. This was secured to the skin with 2-0 silk. The peritoneum was then approximated with 0 Vicryl. The fascia was then closed with 1 PDS. We then directed our attention to the inguinal incision. The redundant hernia sac from a large indirect hernia was readily identified and mobilized down to its base. Some of the redundant portions of the sac was excised and sent to pathology. The sac was then oversewn and inverted. The defect was filled with a Phasix mesh plug. The plug was sutured into position w ith 2-0 Vicryl. The inguinal floor was then reinforced with a Phasix mesh patch. This was also sutured into position with 2-0 Vicryl. A slit was made to accommodate the cord structures. The external oblique was closed over the mesh with 2-0 Vicryl. The subcutaneous tissue was approximated with 3-0 Vicryl. At both incisions a Narinder drain was left in the subcutaneous space which was secured to the skin with 2-0 Vicryl. The skin was then approximated with 4-0 Monocryl. Sterile dressings were then applied. The patient tolerated the procedure well and was sent to the recovery room in stable condition. At the end of the case all counts were correct. ISABEL SALAS MD Jan 17, 2022 11:09
[2022-01-17] MEDS ORDERED: NALOXONE 0.4 MG/ML VIAL. IV PRN (11:15)
[2022-01-17] MEDS ORDERED: HYDROmorphone 12mg/30ml PCA 30 ML IV PRN (11:15)
[2022-01-17] MEDS ORDERED: IV NORMAL SALINE 1000ML BAG 1,000 ML IV SCH (11:15)
[2022-01-17] MEDS ORDERED: PROCHLORPERAZINE 10 MG/2 ML VIAL. ONE (11:29)
--- NOTE | 2022-01-17 13:17 | PDOC ---
[employer] PROGRESS NOTE Date of Service DOS: DATE: 01/17/22 TIME: 13:16 Chief Complaint Chief Complaint Incarcerated left inguinal hernia with obstruction, sigmoid colon infarction prior constipation. recent admit history GERD hypertension hyperlipidemia History of Present Illness History of Present Illness surgery today, Miguelangel -Imaging revealed concern for incarcerated hernia -Surgery consult -N.p.o. -We will hold off DVT prophylaxis in event of surgical intervention -Home meds as indicated Vitals/I&O Vitals/I&O: Vital Signs Date Time Temp Pulse Resp B/P (MAP) Pulse Ox O2 Delivery O2 Flow Rate FiO2 01/17/22 12:50 70 20 119/56 92 Nasal Cannula 2.0 01/17/22 12:35 99.8 99.8 I & O 01/16/22 01/16/22 01/17/22 15:00 23:00 07:00 Intake Total 0 ml Balance 0 ml Physical Exam General: Alert, Oriented X3, Cooperative, No acute distress Lungs: Other Abdomen: Soft, Other (palpable mass in left groin, significant induration, erythema) Extremities: No clubbing, No cyanosis Skin: Other (macular rash of left leg) Labs Labs: Laboratory Tests Test 01/16/22 17:00 01/17/22 06:10 Influenza Type A Antigen Negative (NEGATIVE) Influenza Type B Antigen Negative (NEGATIVE) SARS-CoV-2 Antigen (Rapid) Negative (NEGATIVE) White Blood Count 7.4 x10^3/uL (4.0-11.0) Red Blood Count 3.58 x10^6/uL (4.30-5.70) Hemoglobin 11.6 g/dL (13.0-17.5) Hematocrit 34.4 % (39.0-53.0) Mean Corpuscular Volume 96 fL (79-100) Mean Corpuscular Hemoglobin 32 pg (25-35) Mean Corpuscular Hemoglobin Concent 34 g/dL (31-37) Red Cell Distribution Width 14.0 % (11.5-14.5) Platelet Count 279 x10^3/uL (140-400) Neutrophils (%) (Auto) 68 % (31-73) Lymphocytes (%) (Auto) 17 % (24-48) Monocytes (%) (Auto) 14 % (0-9) Eosinophils (%) (Auto) 1 % (0-3) Basophils (%) (Auto) 1 % (0-3) Neutrophils # (Auto) 5.0 x10^3/uL (1.8-7.7) Lymphocytes # (Auto) 1.2 x10^3/uL (1.0-4.8) Monocytes # (Auto) 1.0 x10^3/uL (0.0-1.1) Eosinophils # (Auto) 0.1 x10^3/uL (0.0-0.7) Basophils # (Auto) 0.0 x10^3/uL (0.0-0.2) Sodium Level 138 mmol/L (136-145) Potassium Level 3.7 mmol/L (3.5-5.1) Chloride Level 104 mmol/L (98-107) Carbon Dioxide Level 25 mmol/L (21-32) Anion Gap 9 (6-14) Blood Urea Nitrogen 13 mg/dL (8-26) Creatinine 0.9 mg/dL (0.7-1.3) Estimated GFR (Cockcroft-Gault) 82.5 Glucose Level 79 mg/dL (70-99) Calcium Level 8.5 mg/dL (8.5-10.1) Assessment and Plan Assessmemt and Plan Problems Medical Problems: (1) Incarcerated left inguinal hernia Status: Acute Comment Review of Relevant I have reviewed the following items shwetha (where applicable) has been applied. Medications: Current Medications Medications (Trade) Dose Ordered Sig/Nura Route PRN Reason Start Time Stop Time Status Last Admin Dose Admin Ringer's Solution 1,000 ml @ 30 mls/hr Q24H IV 01/17/22 06:00 01/17/22 17:59 01/17/22 10:00 Prochlorperazine Edisylate (Compazine) 5 mg PACU PRN PRN IVP NAUSEA, MRX1 01/17/22 06:00 01/18/22 05:59 01/17/22 11:33 Sodium Chloride 1,000 ml @ 100 mls/hr Q10H IV 01/16/22 15:45 01/17/22 15:44 01/17/22 02:11 Piperacillin Sod/ Tazobactam Sod 3.375 gm/Sodium Chloride 50 ml @ 100 mls/hr 1X STAT IV 01/17/22 07:33 01/17/22 08:02 DC 01/17/22 07:50 Sodium Chloride 1,000 ml @ 25 mls/hr Q24H IV 01/17/22 11:15 01/17/22 12:44 Hydromorphone HCl 30 ml @ 0 mls/hr CONT PRN PRN IV PER PROTOCOL 01/17/22 11:15 01/17/22 12:33 Justifications for Admission Other Justification ELBA OLSEN MD Jan 17, 2022 13:17
[2022-01-17] MEDS: PIPERACILLIN/TAZOBACTAM 3.375 GM in IV NORMAL SALINE 50ML 50 ML IV SCH ×2 (14:07→17:58)
[2022-01-17] MEDS ORDERED: SALIVA STIMULANT AGENT 44ML SPRAY BOTTLE. PO PRN (17:15)
[2022-01-17] MEDS: IV RINGERS,LACTATED 1000ML 1,000 ML IV SCH (17:58)
[2022-01-18] MEDS: IV DEXTROSE 5 %-0.45 % NACL 1,000 ML IV SCH ×2 (02:00→15:48)
[2022-01-18 03:00] VITALS: BP 137/51
[2022-01-18] MEDS: PIPERACILLIN/TAZOBACTAM 3.375 GM in IV NORMAL SALINE 50ML 50 ML IV SCH ×4 (06:08→18:04)
[2022-01-18] MEDS: IV RINGERS,LACTATED 1000ML 1,000 ML IV SCH ×2 (06:08→12:12)
[2022-01-18 06:10] LABS: BASO % 0 % (0-3); EOS % 0 % (0-3); HEMATOCRIT 34.6 % (39.0-53.0); HEMOGLOBIN 11.4 g/dL (13.0-17.5); LYMPH # 0.9 x10^3/uL (1.0-4.8); LYMPH % 7 % (24-48); MEAN CORPUSCULAR HEMOGLOBIN 32 pg (25-35); MEAN CORPUSCULAR HGB CONC 33 g/dL (31-37); MEAN CORPUSCULAR VOLUME 98 fL (79-100); MONO # 0.9 x10^3/uL (0.0-1.1); MONO % 7 % (0-9); NEUT # 10.7 x10^3/uL (1.8-7.7); NEUT % 86 % (31-73); PLATELET COUNT 281 x10^3/uL (140-400); RED BLOOD COUNT 3.55 x10^6/uL (4.30-5.70); RED CELL DISTRIBUTION WIDTH 13.8 % (11.5-14.5); WHITE BLOOD COUNT 12.5 x10^3/uL (4.0-11.0)
[2022-01-18 06:29] LABS: CALCIUM 8.5 mg/dL (8.5-10.1); POTASSIUM 4.1 mmol/L (3.5-5.1)
[2022-01-18 07:20] VITALS: BP 119/63
--- NOTE | 2022-01-18 08:48 | PDOC ---
SURGICAL PROGRESS NOTE DATE: 01/18/22 TIME: 08:44 Subjective had stool and flatus pain managed no nausea very dry throat Vital Signs Vital Signs Date Time Temp Pulse Resp B/P (MAP) Pulse Ox O2 Delivery O2 Flow Rate FiO2 01/18/22 07:20 98.6 88 20 119/63 (81) 93 Room Air 98.6 01/17/22 19:40 2.0 I&O Intake and Output 01/18/22 07:00 Intake Total 2050 ml Output Total 830 ml Balance 1220 ml Intake Oral 0 ml IV Total 2050 ml Output Urine Total 600 ml Drainage Total 80 ml Estimated Blood Loss 150 ml General: Alert, Oriented X3, Cooperative Abdomen: Soft, Other (jose serosang, dressing in place) Labs Laboratory Tests Test 01/16/22 12:35 01/16/22 13:10 01/16/22 17:00 01/17/22 06:10 White Blood Count 9.2 x10^3/uL (4.0-11.0) 7.4 x10^3/uL (4.0-11.0) Red Blood Count 3.59 x10^6/uL (4.30-5.70) 3.58 x10^6/uL (4.30-5.70) Hemoglobin 11.9 g/dL (13.0-17.5) 11.6 g/dL (13.0-17.5) Hematocrit 34.5 % (39.0-53.0) 34.4 % (39.0-53.0) Mean Corpuscular Volume 96 fL (79-100) 96 fL (79-100) Mean Corpuscular Hemoglobin 33 pg (25-35) 32 pg (25-35) Mean Corpuscular Hemoglobin Concent 34 g/dL (31-37) 34 g/dL (31-37) Red Cell Distribution Width 13.9 % (11.5-14.5) 14.0 % (11.5-14.5) Platelet Count 310 x10^3/uL (140-400) 279 x10^3/uL (140-400) Neutrophils (%) (Auto) 71 % (31-73) 68 % (31-73) Lymphocytes (%) (Auto) 15 % (24-48) 17 % (24-48) Monocytes (%) (Auto) 13 % (0-9) 14 % (0-9) Eosinophils (%) (Auto) 1 % (0-3) 1 % (0-3) Basophils (%) (Auto) 1 % (0-3) 1 % (0-3) Neutrophils # (Auto) 6.5 x10^3/uL (1.8-7.7) 5.0 x10^3/uL (1.8-7.7) Lymphocytes # (Auto) 1.4 x10^3/uL (1.0-4.8) 1.2 x10^3/uL (1.0-4.8) Monocytes # (Auto) 1.2 x10^3/uL (0.0-1.1) 1.0 x10^3/uL (0.0-1.1) Eosinophils # (Auto) 0.1 x10^3/uL (0.0-0.7) 0.1 x10^3/uL (0.0-0.7) Basophils # (Auto) 0.1 x10^3/uL (0.0-0.2) 0.0 x10^3/uL (0.0-0.2) Sodium Level 131 mmol/L (136-145) 138 mmol/L (136-145) Potassium Level 3.6 mmol/L (3.5-5.1) 3.7 mmol/L (3.5-5.1) Chloride Level 96 mmol/L (98-107) 104 mmol/L (98-107) Carbon Dioxide Level 30 mmol/L (21-32) 25 mmol/L (21-32) Anion Gap 5 (6-14) 9 (6-14) Blood Urea Nitrogen 11 mg/dL (8-26) 13 mg/dL (8-26) Creatinine 1.0 mg/dL (0.7-1.3) 0.9 mg/dL (0.7-1.3) Estimated GFR (Cockcroft-Gault) 73.0 82.5 BUN/Creatinine Ratio 11 (6-20) Glucose Level 110 mg/dL (70-99) 79 mg/dL (70-99) Lactic Acid Level 1.0 mmol/L (0.4-2.0) Calcium Level 8.7 mg/dL (8.5-10.1) 8.5 mg/dL (8.5-10.1) Phosphorus Level 3.3 mg/dL (2.6-4.7) Magnesium Level 2.4 mg/dL (1.8-2.4) Total Bilirubin 1.0 mg/dL (0.2-1.0) Aspartate Amino Transf (AST/SGOT) 45 U/L (15-37) Alanine Aminotransferase (ALT/SGPT) 39 U/L (16-63) Alkaline Phosphatase 73 U/L (46-116) Total Protein 8.0 g/dL (6.4-8.2) Albumin 3.3 g/dL (3.4-5.0) Albumin/Globulin Ratio 0.7 (1.0-1.7) Lipase 78 U/L (73-393) Urine Collection Type Unknown Urine Color Yellow Urine Clarity Clear Urine pH 7.0 (<5.0-8.0) Urine Specific Cosmos 1.010 (1.000-1.030) Urine Protein Negative mg/dL (NEG-TRACE) Urine Glucose (UA) Negative mg/dL (NEG) Urine Ketones (Stick) Negative mg/dL (NEG) Urine Blood Trace (NEG) Urine Nitrite Negative (NEG) Urine Bilirubin Negative (NEG) Urine Urobilinogen Dipstick 0.2 mg/dL (0.2 mg/dL) Urine Leukocyte Esterase Negative (NEG) Urine RBC 0 /HPF (0-2) Urine WBC 0 /HPF (0-4) Urine Bacteria 0 /HPF (0-FEW) Coronavirus (COVID-19)(PCR) Not detected (NOT DETECTD) Influenza Type A Antigen Negative (NEGATIVE) Influenza Type B Antigen Negative (NEGATIVE) SARS-CoV-2 Antigen (Rapid) Negative (NEGATIVE) Test 01/18/22 05:10 White Blood Count 12.5 x10^3/uL (4.0-11.0) Red Blood Count 3.55 x10^6/uL (4.30-5.70) Hemoglobin 11.4 g/dL (13.0-17.5) Hematocrit 34.6 % (39.0-53.0) Mean Corpuscular Volume 98 fL (79-100) Mean Corpuscular Hemoglobin 32 pg (25-35) Mean Corpuscular Hemoglobin Concent 33 g/dL (31-37) Red Cell Distribution Width 13.8 % (11.5-14.5) Platelet Count 281 x10^3/uL (140-400) Neutrophils (%) (Auto) 86 % (31-73) Lymphocytes (%) (Auto) 7 % (24-48) Monocytes (%) (Auto) 7 % (0-9) Eosinophils (%) (Auto) 0 % (0-3) Basophils (%) (Auto) 0 % (0-3) Neutrophils # (Auto) 10.7 x10^3/uL (1.8-7.7) Lymphocytes # (Auto) 0.9 x10^3/uL (1.0-4.8) Monocytes # (Auto) 0.9 x10^3/uL (0.0-1.1) Eosinophils # (Auto) 0.0 x10^3/uL (0.0-0.7) Basophils # (Auto) 0.0 x10^3/uL (0.0-0.2) Sodium Level 139 mmol/L (136-145) Potassium Level 4.1 mmol/L (3.5-5.1) Chloride Level 105 mmol/L (98-107) Carbon Dioxide Level 24 mmol/L (21-32) Anion Gap 10 (6-14) Blood Urea Nitrogen 18 mg/dL (8-26) Creatinine 1.0 mg/dL (0.7-1.3) Estimated GFR (Cockcroft-Gault) 73.0 Glucose Level 95 mg/dL (70-99) Calcium Level 8.5 mg/dL (8.5-10.1) Laboratory Tests Test 01/18/22 05:10 White Blood Count 12.5 x10^3/uL (4.0-11.0) Red Blood Count 3.55 x10^6/uL (4.30-5.70) Hemoglobin 11.4 g/dL (13.0-17.5) Hematocrit 34.6 % (39.0-53.0) Mean Corpuscular Volume 98 fL (79-100) Mean Corpuscular Hemoglobin 32 pg (25-35) Mean Corpuscular Hemoglobin Concent 33 g/dL (31-37) Red Cell Distribution Width 13.8 % (11.5-14.5) Platelet Count 281 x10^3/uL (140-400) Neutrophils (%) (Auto) 86 % (31-73) Lymphocytes (%) (Auto) 7 % (24-48) Monocytes (%) (Auto) 7 % (0-9) Eosinophils (%) (Auto) 0 % (0-3) Basophils (%) (Auto) 0 % (0-3) Neutrophils # (Auto) 10.7 x10^3/uL (1.8-7.7) Lymphocytes # (Auto) 0.9 x10^3/uL (1.0-4.8) Monocytes # (Auto) 0.9 x10^3/uL (0.0-1.1) Eosinophils # (Auto) 0.0 x10^3/uL (0.0-0.7) Basophils # (Auto) 0.0 x10^3/uL (0.0-0.2) Sodium Level 139 mmol/L (136-145) Potassium Level 4.1 mmol/L (3.5-5.1) Chloride Level 105 mmol/L (98-107) Carbon Dioxide Level 24 mmol/L (21-32) Anion Gap 10 (6-14) Blood Urea Nitrogen 18 mg/dL (8-26) Creatinine 1.0 mg/dL (0.7-1.3) Estimated GFR (Cockcroft-Gault) 73.0 Glucose Level 95 mg/dL (70-99) Calcium Level 8.5 mg/dL (8.5-10.1) Problem List Problems Medical Problems: (1) Incarcerated left inguinal hernia Status: Acute Assessment/Plan ice chips, sips, await improved bowel function DC burkett POD 2 pt/ot eval Justicifation of Admission Dx: Justifications for Admission: Justification of Admission Dx: Yes Comments: incarcerated hernia CHANTEL RIVERA FLOOR FRAMER Jan 18, 2022 08:47
[2022-01-18] MEDS: SENNOSIDES/DOCUSATE 8.6/50MG TABLET. PO SCH ×2 (09:00→20:57)
[2022-01-18 10:54] VITALS: BP 130/57
[2022-01-18] MEDS: ENOXAPARIN 40 MG/0.4 ML SYRINGE. SQ SCH (12:10)
--- NOTE | 2022-01-18 13:06 | PDOC ---
[employer] PROGRESS NOTE Date of Service DOS: DATE: 01/18/22 TIME: 13:05 Chief Complaint Chief Complaint Incarcerated left inguinal hernia with obstruction, sigmoid colon infarction prior constipation. recent admit history GERD hypertension hyperlipidemia History of Present Illness History of Present Illness 01/18,. 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 -We will hold off DVT prophylaxis in event of surgical intervention -Home meds as indicated Vitals/I&O Vitals/I&O: Vital Signs Date Time Temp Pulse Resp B/P (MAP) Pulse Ox O2 Delivery O2 Flow Rate FiO2 01/18/22 10:54 98.5 71 20 130/57 (81) 94 Room Air 98.5 01/17/22 19:40 2.0 I & O 01/17/22 01/17/22 01/18/22 15:00 23:00 07:00 Intake Total 2050 ml 0 ml 0 ml Output Total 780 ml 50 ml Balance 1270 ml 0 ml -50 ml Physical Exam General: Alert, Oriented X3, Cooperative Lungs: Other Abdomen: Soft, Other (jose serosang, dressing in place) Extremities: No clubbing, No cyanosis Skin: Other (macular rash of left leg) Labs Labs: Laboratory Tests Test 01/18/22 05:10 White Blood Count 12.5 x10^3/uL (4.0-11.0) Red Blood Count 3.55 x10^6/uL (4.30-5.70) Hemoglobin 11.4 g/dL (13.0-17.5) Hematocrit 34.6 % (39.0-53.0) Mean Corpuscular Volume 98 fL (79-100) Mean Corpuscular Hemoglobin 32 pg (25-35) Mean Corpuscular Hemoglobin Concent 33 g/dL (31-37) Red Cell Distribution Width 13.8 % (11.5-14.5) Platelet Count 281 x10^3/uL (140-400) Neutrophils (%) (Auto) 86 % (31-73) Lymphocytes (%) (Auto) 7 % (24-48) Monocytes (%) (Auto) 7 % (0-9) Eosinophils (%) (Auto) 0 % (0-3) Basophils (%) (Auto) 0 % (0-3) Neutrophils # (Auto) 10.7 x10^3/uL (1.8-7.7) Lymphocytes # (Auto) 0.9 x10^3/uL (1.0-4.8) Monocytes # (Auto) 0.9 x10^3/uL (0.0-1.1) Eosinophils # (Auto) 0.0 x10^3/uL (0.0-0.7) Basophils # (Auto) 0.0 x10^3/uL (0.0-0.2) Sodium Level 139 mmol/L (136-145) Potassium Level 4.1 mmol/L (3.5-5.1) Chloride Level 105 mmol/L (98-107) Carbon Dioxide Level 24 mmol/L (21-32) Anion Gap 10 (6-14) Blood Urea Nitrogen 18 mg/dL (8-26) Creatinine 1.0 mg/dL (0.7-1.3) Estimated GFR (Cockcroft-Gault) 73.0 Glucose Level 95 mg/dL (70-99) Calcium Level 8.5 mg/dL (8.5-10.1) Assessment and Plan Assessmemt and Plan Problems Medical Problems: (1) Incarcerated left inguinal hernia Status: Acute Comment Review of Relevant I have reviewed the following items shwetha (where applicable) has been applied. Medications: Current Medications Medications (Trade) Dose Ordered Sig/Nura Route PRN Reason Start Time Stop Time Status Last Admin Dose Admin Ringer's Solution 1,000 ml @ 100 mls/hr Q10H IV 01/17/22 17:15 01/18/22 12:12 Enoxaparin Sodium (Lovenox 40mg Syringe) 40 mg Q24H SQ 01/18/22 09:00 01/18/22 12:10 Justifications for Admission Other Justification ELBA OLSEN MD Jan 18, 2022 13:05
[2022-01-18 15:00] VITALS: BP 125/59
[2022-01-18 19:00] VITALS: BP 127/55
[2022-01-18 23:25] VITALS: BP 125/55
[2022-01-19 02:57] VITALS: BP 120/56
[2022-01-19] MEDS: PIPERACILLIN/TAZOBACTAM 3.375 GM in IV NORMAL SALINE 50ML 50 ML IV SCH ×5 (06:11→23:41)
[2022-01-19 07:00] VITALS: BP 128/56
[2022-01-19] MEDS: SENNOSIDES/DOCUSATE 8.6/50MG TABLET. PO SCH ×2 (08:41→20:55)
[2022-01-19] MEDS: ENOXAPARIN 40 MG/0.4 ML SYRINGE. SQ SCH (08:41)
--- NOTE | 2022-01-19 08:48 | PDOC ---
SURGICAL PROGRESS NOTE DATE: 01/19/22 TIME: 08:46 Subjective asking about liquids some flatus no nausea Vital Signs Vital Signs Date Time Temp Pulse Resp B/P (MAP) Pulse Ox O2 Delivery O2 Flow Rate FiO2 01/19/22 07:00 97.8 67 20 128/56 (80) 92 Room Air 97.8 I&O Intake and Output 01/19/22 07:00 Intake Total 0 ml Output Total 700 ml Balance -700 ml Intake Oral 0 ml Drainage Total 700 ml General: Alert, Oriented X3, Cooperative Abdomen: Soft, Other (jose serosang) Labs Laboratory Tests Test 01/18/22 05:10 White Blood Count 12.5 x10^3/uL (4.0-11.0) Red Blood Count 3.55 x10^6/uL (4.30-5.70) Hemoglobin 11.4 g/dL (13.0-17.5) Hematocrit 34.6 % (39.0-53.0) Mean Corpuscular Volume 98 fL (79-100) Mean Corpuscular Hemoglobin 32 pg (25-35) Mean Corpuscular Hemoglobin Concent 33 g/dL (31-37) Red Cell Distribution Width 13.8 % (11.5-14.5) Platelet Count 281 x10^3/uL (140-400) Neutrophils (%) (Auto) 86 % (31-73) Lymphocytes (%) (Auto) 7 % (24-48) Monocytes (%) (Auto) 7 % (0-9) Eosinophils (%) (Auto) 0 % (0-3) Basophils (%) (Auto) 0 % (0-3) Neutrophils # (Auto) 10.7 x10^3/uL (1.8-7.7) Lymphocytes # (Auto) 0.9 x10^3/uL (1.0-4.8) Monocytes # (Auto) 0.9 x10^3/uL (0.0-1.1) Eosinophils # (Auto) 0.0 x10^3/uL (0.0-0.7) Basophils # (Auto) 0.0 x10^3/uL (0.0-0.2) Sodium Level 139 mmol/L (136-145) Potassium Level 4.1 mmol/L (3.5-5.1) Chloride Level 105 mmol/L (98-107) Carbon Dioxide Level 24 mmol/L (21-32) Anion Gap 10 (6-14) Blood Urea Nitrogen 18 mg/dL (8-26) Creatinine 1.0 mg/dL (0.7-1.3) Estimated GFR (Cockcroft-Gault) 73.0 Glucose Level 95 mg/dL (70-99) Calcium Level 8.5 mg/dL (8.5-10.1) Problem List Problems Medical Problems: (1) Incarcerated left inguinal hernia Status: Acute Assessment/Plan princess herman slowly ambulate Justicifation of Admission Dx: Justifications for Admission: Justification of Admission Dx: Yes CHANTEL RIVERA APRN Jan 19, 2022 08:48
--- NOTE | 2022-01-19 10:28 | PDOC ---
[employer] PROGRESS NOTE Date of Service DOS: DATE: 01/19/22 TIME: 10:26 Chief Complaint Chief Complaint Incarcerated left inguinal hernia with obstruction, sigmoid colon infarction prior constipation. 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 -We will hold off DVT prophylaxis in event of surgical intervention -Home meds as indicated Vitals/I&O Vitals/I&O: Vital Signs Date Time Temp Pulse Resp B/P (MAP) Pulse Ox O2 Delivery O2 Flow Rate FiO2 01/19/22 07:00 97.8 67 20 128/56 (80) 92 Room Air 97.8 I & O 01/18/22 01/18/22 01/19/22 15:00 23:00 07:00 Intake Total 0 ml 0 ml Output Total 300 ml 400 ml Balance -300 ml -400 ml Physical Exam General: Alert, Oriented X3, Cooperative, No acute distress Heart: Regular rate, No murmurs Lungs: Clear, Other Abdomen: Soft, Other (jose serosang) Extremities: No clubbing, No cyanosis Skin: Other (macular rash of left leg) Assessment and Plan Assessmemt and Plan Problems Medical Problems: (1) Incarcerated left inguinal hernia Status: Acute Comment Review of Relevant I have reviewed the following items shwetha (where applicable) has been applied. Medications: Current Medications Medications (Trade) Dose Ordered Sig/Nura Route PRN Reason Start Time Stop Time Status Last Admin Dose Admin Dextrose/Sodium Chloride 1,000 ml @ 100 mls/hr Q10H IV 01/18/22 13:15 01/18/22 02:00 Justifications for Admission Other Justification ELBA OLSEN MD Jan 19, 2022 10:28
[2022-01-19] MEDS ORDERED: MORPHINE SULFATE 2 MG/ML INJ. IVP PRN (10:30)
[2022-01-19] MEDS ORDERED: oxyCODONE/APAP 5/325 1 TAB TABLET PO PRN (10:30)
[2022-01-19 11:00] VITALS: BP 125/52
[2022-01-19] MEDS: IV DEXTROSE 5 %-0.45 % NACL 1,000 ML IV SCH ×2 (12:43→22:49)
--- NOTE | 2022-01-19 13:53 | NUR ---
SW following. Discussed with RN, therapy recommending SNF - pt walked 190ft plus 40ft. HALEY met with pt, pt does not want SNF and does not want home health but knows he needs a walker. HALEY requested script for walker from physician. Pt will likely be here a couple more days recovering from his surgery. RN notified. HALEY will continue to follow. Addendum: 01/19/22 at 1503 by LUPE DE LEON Walker referral faxed to [facility] Awaiting approval. RN notified.
--- NOTE | 2022-01-19 14:11 | PATHOLOGY ---
[facility] Accession Number: [id number] . 01 Material submitted: . PART A: sigmoid colon - SIGMOID COLON, HISTORY OF INCARCERATED L INGUINAL HERNIA PART B: inguinal area - LT INGUINAL HERNIA SAC. Modifiers: left . 02 Diagnosis: A. Segment of colon and attached adipose tissue, sigmoid colon segmental resection: - Focal transmural necrosis and acute inflammation of colon with perforation and acute serosal inflammation. - Focal fibrosis and hemorrhage of colonic serosa and attached adipose tissues. - Focal reactive changes of three mesocolic lymph nodes. - Margins of sigmoid colon viable. . B. Segment of fibromembranous and fibroadipose tissue, left inguinal hernia repair: - Hernia sac showing focal reactive fibrosis, hemorrhage, and acute inflammation. (JPM:eliseo; 01/19/2022) S 01/19/2022 1329 Local . 02 Electronically signed: . Benson Obregon MD, Pathologist NPI- [id number] . 01 Gross description: . A. The specimen is received in formalin, labeled "Joshua Gamez, sigmoid colon history of incarcerated left inguinal hernia" and consists of an unoriented portion of sigmoid colon (12.0 cm in length by 3.0 cm-5.4 cm in diameter) with abundant attached fat. The stapled margins are differentially inked black and blue. The serosa is clay-lamas, dusky and hemorrhagic and displays a clay-yellow necrotic area (4.6 x 2.5 cm). The specimen is opened to reveal a prominent full-thickness outpouching (5.5 x 5.0 x 4.7 cm) and the necrotic serosa directly overlies the full-thickness outpouching. A focal perforation (1.0 x 0.5 cm) is identified at the outpouching and is contiguous with the overlying necrotic serosa. Two pink-lamas polyps (0.6 x 0.4 x 0.3 cm and 0.7 x 0.3 x 0.3 cm) are identified, the nearest of which comes to within 4.5 cm from the blue inked margin, 7.0 cm from the black inked margin and 4.0 cm from the mesenteric margin (selectively inked orange). Both polyps appear confined to the mucosa. The remaining mucosa is edematous but otherwise unremarkable. The wall thickness measures up to 3.0 cm. Two pink-red candidate lymph nodes (0.7 x 0.5 x 0.3 cm lamas 0.9 x 0.6 x 0.4 cm) are identified. Graphic Designer sections to include the entirety of the polyps and candidate lymph nodes are submitted as follows: A1: Surgical margins, submitted en face A2: Mesenteric margin, submitted en face A3-A4: Perforation A5-A6: 1 polyp in each cassette, submitted intact A7: Full-thickness section at outpouching A8: 1 serially sectioned candidate lymph node (inked blue) and 1 trisected candidate lymph node (not inked) . B. Fixative: Formalin Labeled: L inguinal hernia sac Specimen received: A clay-purple and dusky, saccular fatty and membranous tissue Dimensions: 5.8 x 4.9 x 1.0 cm Abnormalities: None Graphic Designer sections are submitted in B1. ([facility]; 01/17/2022) DKA/DKA 01/17/2022 1655 Local . Pathologist provided ICD-10: K52.9, K63.1, K55.069, R59.9, K40.90 . 02 CPT . 967680, [id number] Specimen Comment: A courtesy copy of this report has been sent to [phone], [phone] Specimen Comment: [id number] Specimen Comment: Report sent to / DR EDWARDS Specimen Comment: A duplicate report has been generated due to demographic updates. Performed at: 01 [facility] [address] [facility] [address], [place] [id number] MD Dean Orozco MD Phone: [phone] Performed at: 02 [facility] [address] [place], [place] [id number] MD Benson Obregon MD Phone: [phone]
[2022-01-19 15:00] VITALS: BP 97/52
[2022-01-19 19:00] VITALS: BP 139/50
[2022-01-19] MEDS: ACETAMINOPHEN 325 MG TABLET. PO PRN (20:50)
[2022-01-19 23:11] VITALS: BP 124/51
[2022-01-20 03:11] VITALS: BP 129/53
[2022-01-20] MEDS: PIPERACILLIN/TAZOBACTAM 3.375 GM in IV NORMAL SALINE 50ML 50 ML IV SCH ×3 (05:20→16:36)
[2022-01-20 07:00] VITALS: BP 127/60
[2022-01-20] MEDS: SENNOSIDES/DOCUSATE 8.6/50MG TABLET. PO SCH ×2 (07:33→20:58)
[2022-01-20] MEDS: IV DEXTROSE 5 %-0.45 % NACL 1,000 ML IV SCH ×2 (07:36→16:34)
[2022-01-20] MEDS: ENOXAPARIN 40 MG/0.4 ML SYRINGE. SQ SCH (07:37)
--- NOTE | 2022-01-20 08:51 | PDOC ---
CHANTEL RIVERA APRN 01/20/22 0851: SURGICAL PROGRESS NOTE DATE: 01/20/22 TIME: 08:50 Subjective tolerating clears no nausea + flatus Vital Signs Vital Signs Date Time Temp Pulse Resp B/P (MAP) Pulse Ox O2 Delivery O2 Flow Rate FiO2 01/20/22 07:00 98.2 48 18 127/60 (82) 96 Room Air 98.2 I&O Intake and Output 01/20/22 07:00 Intake Total 0 ml Output Total 475 ml Balance -475 ml Intake Oral 0 ml Output Urine Total 450 ml Drainage Total 25 ml # Voids 1 # Bowel Movements 1 General: Alert, Oriented X3, Cooperative Abdomen: Soft, Other (drain serosang, dressing dry) Problem List Problems Medical Problems: (1) Incarcerated left inguinal hernia Status: Acute Assessment/Plan advance diet ambulate dc planning Justicifation of Admission Dx: Justifications for Admission: Justification of Admission Dx: Yes ISABEL SALAS MD 01/21/22 1128: SURGICAL PROGRESS NOTE Assessment/Plan Agree with above CHANTEL RIVERA APRN Jan 20, 2022 08:51 ISABEL SALAS MD Jan 21, 2022 11:28
[2022-01-20 11:00] VITALS: BP 134/55
--- NOTE | 2022-01-20 12:59 | NUR ---
SW following. Discussed with RN, Tanna provided walker to patient. Pt will discharge home with self care when medically stable. Pt declining SNF and Home Health at this time. SW will continue to follow.
[2022-01-20 15:00] VITALS: BP 128/58
--- NOTE | 2022-01-20 16:23 | PDOC ---
[facility] PROGRESS NOTE Date of Service DOS: DATE: 01/20/22 TIME: 16:23 Chief Complaint Chief Complaint Incarcerated left inguinal hernia with obstruction, sigmoid colon infarction prior constipation. 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 still on CREAMERY WORKER, still pain cont IV fluid still burkett, he feels too weak to transfer to go up to chair PT and OT to start surgery today, Miguelangel -Imaging revealed concern for incarcerated hernia -Surgery consult -N.p.o. -We will hold off DVT prophylaxis in event of surgical intervention -Home meds as indicated Vitals/I&O Vitals/I&O: Vital Signs Date Time Temp Pulse Resp B/P (MAP) Pulse Ox O2 Delivery O2 Flow Rate FiO2 01/20/22 15:00 98.5 82 16 128/58 (81) 93 Room Air 98.5 I & O 01/19/22 01/19/22 01/20/22 15:00 23:00 07:00 Intake Total 0 ml 0 ml Output Total 25 ml 450 ml Balance -25 ml -450 ml Physical Exam General: Alert, Oriented X3, Cooperative Heart: Regular rate, No murmurs Lungs: Clear, Other Abdomen: Soft, Other (drain serosang, dressing dry) Extremities: No clubbing, No cyanosis Skin: Other (macular rash of left leg) Assessment and Plan Assessmemt and Plan Problems Medical Problems: (1) Incarcerated left inguinal hernia Status: Acute Comment Review of Relevant I have reviewed the following items shwetha (where applicable) has been applied. Justifications for Admission Other Justification ELBA OLSEN MD Jan 20, 2022 16:23
[2022-01-20 19:20] VITALS: BP 135/57
[2022-01-20 23:13] VITALS: BP 128/56
[2022-01-21] MEDS: PIPERACILLIN/TAZOBACTAM 3.375 GM in IV NORMAL SALINE 50ML 50 ML IV SCH ×5 (00:08→23:39)
[2022-01-21] MEDS: IV DEXTROSE 5 %-0.45 % NACL 1,000 ML IV SCH ×3 (01:15→15:09)
[2022-01-21 03:14] VITALS: BP 144/54
[2022-01-21 07:00] VITALS: BP 133/67
[2022-01-21] MEDS: SENNOSIDES/DOCUSATE 8.6/50MG TABLET. PO SCH ×2 (09:00→21:00)
[2022-01-21] MEDS: ENOXAPARIN 40 MG/0.4 ML SYRINGE. SQ SCH (09:09)
[2022-01-21 11:00] VITALS: BP 128/65
--- NOTE | 2022-01-21 11:27 | PDOC ---
PROGRESS NOTES Date of Service DATE: 01/21/22 TIME: 11:26 Subjective Subjective doing well, having stools Objective Objective Vital Signs Date Time Temp Pulse Resp B/P (MAP) Pulse Ox O2 Delivery O2 Flow Rate FiO2 01/21/22 07:10 Room Air 01/21/22 07:00 98.0 65 18 133/67 (89) 95 98.0 01/17/22 19:40 2.0 Intake and Output 01/21/22 07:00 Intake Total 480 ml Output Total 50 ml Balance 430 ml Intake Oral 480 ml Drainage Total 50 ml # Voids 3 # Bowel Movements 5 Physical Exam Abdomen: Soft, No tenderness Assessment Assessment Problems Medical Problems: (1) Incarcerated left inguinal hernia Status: Acute Plan Plan of Care Advance diet, work towards discharge Comment Review of Relevant I have reviewed the following items shwetha (where applicable) has been applied. Medications Current Medications Iohexol (Omnipaque 300 Mg/ml) 75 ml 1X ONCE IV Last administered on 01/16/22at 13:27; Start 01/16/22 at 13:00; Stop 01/16/22 at 13:03; Status DC Info (CONTRAST GIVEN -- Rx MONITORING) 1 each PRN DAILY PRN MC SEE COMMENTS; Start 01/16/22 at 13:00; Stop 01/18/22 at 12:59; Status DC Fentanyl Citrate (Fentanyl 2ml Vial) 25 mcg PRN Q5MIN PRN IVP MILD PAIN 1-3; Start 01/17/22 at 06:00; Stop 01/18/22 at 05:59; Status DC Fentanyl Citrate (Fentanyl 2ml Vial) 50 mcg PRN Q5MIN PRN IVP MODERATE PAIN 4- 6; Start 01/17/22 at 06:00; Stop 01/18/22 at 05:59; Status DC Morphine Sulfate (Morphine Sulfate) 1 mg PRN Q10MIN PRN IVP SEVERE PAIN 7-10; Start 01/17/22 at 06:00; Stop 01/18/22 at 05:59; Status DC Ringer's Solution 1,000 ml @ 30 mls/hr Q24H IV Last administered on 01/17/22at 10:00; Start 01/17/22 at 06:00; Stop 01/17/22 at 17:12; Status DC Hydromorphone HCl (Dilaudid) 0.5 mg PRN Q10MIN PRN IVP SEVERE PAIN 7-10, 2nd CHOICE; Start 01/17/22 at 06:00; Stop 01/18/22 at 05:59; Status DC Prochlorperazine Edisylate (Compazine) 5 mg PACU PRN PRN IVP NAUSEA, MRX1 Last administered on 01/17/22at 11:33; Start 01/17/22 at 06:00; Stop 01/18/22 at 05:59; Status DC Ondansetron HCl (Zofran) 4 mg PRN Q8HRS PRN IVP NAUSEA/VOMITING; Start 01/16/22 at 15:45; Stop 01/17/22 at 09:57; Status DC Morphine Sulfate (Morphine Sulfate) 4 mg PRN Q2HR PRN IVP PAIN; Start 01/16/22 at 15:45; Stop 01/17/22 at 15:44; Status DC Sodium Chloride 1,000 ml @ 100 mls/hr Q10H IV Last administered on 01/17/22at 11:45; Start 01/16/22 at 15:45; Stop 01/17/22 at 15:44; Status DC Ondansetron HCl (Zofran) 4 mg PRN Q6HRS PRN IVP NAUSEA/VOMITING; Start 01/16/22 at 16:15 Calcium Carbonate/ Glycine (Tums) 500 mg PRN Q3HRS PRN PO UPSET STOMACH; Start 01/16/22 at 16:15 Info (Non-Icu Electrolyte Protocol) 1 ea PRN DAILY PRN MC SEE COMMENTS; Start 01/16/22 at 16:15 Morphine Sulfate (Morphine Sulfate) 1 mg PRN Q1HR PRN IV PAIN; Start 01/16/22 at 16:15; Stop 01/19/22 at 10:27; Status DC Morphine Sulfate (Morphine Sulfate) 2 mg PRN Q1HR PRN IV PAIN; Start 01/16/22 at 16:15; Stop 01/19/22 at 10:26; Status DC Acetaminophen (Tylenol) 650 mg PRN Q6HRS PRN PO Headaches, Temp > 101.5F Last administered on 01/19/22at 20:50; Start 01/16/22 at 16:15 Senna/Docusate Sodium (Senna Plus) 1 tab BID PO ; Start 01/16/22 at 21:00 Sugammadex Sodium (Bridion) 200 mg 1X ONCE IVP ; Start 01/17/22 at 07:45; Stop 01/17/22 at 07:46; Status DC Piperacillin Sod/ Tazobactam Sod 3.375 gm/Sodium Chloride 50 ml @ 100 mls/hr 1X STAT IV Last administered on 01/17/22at 07:50; Start 01/17/22 at 07:33; Stop 01/17/22 at 08:02; Status DC Bupivacaine HCl/ Epinephrine Bitart (Sensorcain-Epi 0.5% Kit) 30 ml STK-MED ONCE INJ ; Start 01/17/22 at 07:59; Stop 01/17/22 at 08:00; Status Cancel Rocuronium [place] (Zemuron) 50 mg STK-MED ONCE .ROUTE ; Start 01/17/22 at 08:17; Stop 01/17/22 at 08:17; Status DC Naloxone HCl (Narcan) 0.4 mg PRN Q2MIN PRN IV SEE INSTRUCTIONS; Start 01/17/22 at 11:15 Sodium Chloride 1,000 ml @ 25 mls/hr Q24H IV Last administered on 01/17/22at 12:44; Start 01/17/22 at 11:15; Stop 01/17/22 at 17:11; Status DC Hydromorphone HCl 30 ml @ 0 mls/hr CONT PRN PRN IV PER PROTOCOL Last administered on 01/17/22at 12:33; Start 01/17/22 at 11:15; Stop 01/19/22 at 10:26; Status DC Piperacillin Sod/ Tazobactam Sod 3.375 gm/Sodium Chloride 50 ml @ 100 mls/hr Q6HRS IV Last administered on 01/21/22at 05:34; Start 01/17/22 at 13:00 Prochlorperazine Edisylate (Compazine) 10 mg STK-MED ONCE .ROUTE ; Start 01/17/22 at 11:29; Stop 01/17/22 at 11:30; Status DC Saliva Substitute (Biotene Moisturizing Mouth) 2 spray PRN Q15MIN PRN PO DRY MOUTH; Start 01/17/22 at 17:15 Ringer's Solution 1,000 ml @ 100 mls/hr Q10H IV Last administered on 01/18/22at 12:12; Start 01/17/22 at 17:15; Stop 01/18/22 at 13:06; Status DC Enoxaparin Sodium (Lovenox 40mg Syringe) 40 mg Q24H SQ Last administered on 01/21/22at 09:09; Start 01/18/22 at 09:00 Dextrose/Sodium Chloride 1,000 ml @ 100 mls/hr Q10H IV Last administered on 01/21/22at 03:30; Start 01/18/22 at 13:15 Oxycodone/ Acetaminophen (Percocet 5/325) 1 tab PRN Q4HRS PRN PO MODERATE TO SE HARVEY PAIN Last administered on 01/20/22at 01:25; Start 01/19/22 at 10:30 Morphine Sulfate (Morphine Sulfate) 2 mg PRN Q2HR PRN IVP MODERATE TO SEVERE PAIN; Start 01/19/22 at 10:30 Fentanyl Citrate (Fentanyl 2ml Vial) 100 mcg STK-MED ONCE .ROUTE ; Start at 06:46; Stop 01/20/22 at 10:10; Status DC Lidocaine HCl (Lidocaine Pf 2% Vial) 5 ml STK-MED ONCE .ROUTE ; Start 01/17/22 at 06:47; Stop 01/20/22 at 10:10; Status DC Ondansetron HCl (Zofran) 4 mg STK-MED ONCE .ROUTE ; Start 01/17/22 at 06:47; Stop 01/20/22 at 10:10; Status DC Propofol (Diprivan) 200 mg STK-MED ONCE IV ; Start 01/17/22 at 06:47; Stop 01/20/22 at 10:10; Status DC Dexamethasone Sodium Phosphate (Decadron) 4 mg STK-MED ONCE .ROUTE ; Start 01/17/22 at 06:47; Stop 01/20/22 at 10:10; Status DC Bupivacaine HCl/ Epinephrine Bitart (Sensorcain-Epi 0.5% Kit) 30 ml STK-MED ONCE .ROUTE ; Start 01/17/22 at 07:08; Stop 01/20/22 at 10:10; Status DC Rocuronium [place] (Zemuron) 50 mg STK-MED ONCE .ROUTE ; Start 01/17/22 at 07:31; Stop 01/20/22 at 10:10; Status DC Hydromorphone HCl (Dilaudid) 2 mg STK-MED ONCE .ROUTE ; Start 01/17/22 at 08:52; Stop 01/20/22 at 10:10; Status DC Active Scripts Active Triamcinolone Acetonide 0.1% Cream (Triamcinolone Acetonide) 15 Gm Cream..g. 1 Radha TP BID Reported [Tamsulosin] 0.4 Cap Atorvastatin Calcium 40 Mg Tablet 1 Tab PO DAILY Pantoprazole Sodium 40 Mg Tablet. 1 Tab PO DAILY Amlodipine Besylate 5 Mg Tablet 1 Tab PO DAILY Vitals/I & O Vital Sign - Last 24 Hours 01/20/22 01/20/22 01/20/22 01/20/22 15:00 19:20 20:00 23:13 Temp 98.5 97.9 98.1 98.5 97.9 98.1 Pulse 82 71 77 Resp 16 20 20 B/P (MAP) 128/58 (81) 135/57 (83) 128/56 (80) Pulse Ox 93 98 98 O2 Delivery Room Air Room Air Room Air Room Air 01/21/22 01/21/22 01/21/22 03:14 07:00 07:10 Temp 98.2 98.0 98.2 98.0 Pulse 65 65 Resp 18 18 B/P (MAP) 144/54 (84) 133/67 (89) Pulse Ox 97 95 O2 Delivery Room Air Room Air Room Air Intake and Output 01/20/22 01/20/22 01/21/22 15:00 23:00 07:00 Intake Total 480 ml Output Total 50 ml Balance 430 ml Justifications for Admission Other Justification ISABEL SALAS MD Jan 21, 2022 11:27
--- NOTE | 2022-01-21 12:26 | PDOC ---
[facility] PROGRESS NOTE Date of Service DOS: DATE: 01/21/22 TIME: 12: Chief Complaint Chief Complaint Incarcerated left inguinal hernia with obstruction, sigmoid colon infarction prior constipation. 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 still on SCREEN PRINTING PASTER, still pain cont IV fluid still burkett, he feels too weak to transfer to go up to chair PT and OT to start surgery today, Miguelangel -Imaging revealed concern for incarcerated hernia -Surgery consult -N.p.o. -We will hold off DVT prophylaxis in event of surgical intervention -Home meds as indicated Vitals/I&O Vitals/I&O: Vital Signs Date Time Temp Pulse Resp B/P (MAP) Pulse Ox O2 Delivery O2 Flow Rate FiO2 01/21/22 11:00 97.9 67 18 128/65 (86) 95 Room Air 97.9 I & O 01/20/22 01/20/22 01/21/22 15:00 23:00 07:00 Intake Total 480 ml Output Total 50 ml Balance 430 ml Physical Exam General: Alert, Oriented X3, Cooperative Heart: Regular rate, No murmurs Lungs: Clear, Other Abdomen: Soft, No tenderness Extremities: No clubbing, No cyanosis Skin: Other (macular rash of left leg) Assessment and Plan Assessmemt and Plan Problems Medical Problems: (1) Incarcerated left inguinal hernia Status: Acute Comment Review of Relevant I have reviewed the following items shwetha (where applicable) has been applied. Justifications for Admission Other Justification ELBA OLSEN MD Jan 21, 2022 12:26
[2022-01-21 15:00] VITALS: BP 128/59
[2022-01-21 19:00] VITALS: BP 146/70
[2022-01-21] MEDS: LACTOBACILLUS RHAMNOSUS GG 1 CAPSULE. PO SCH (21:12)
[2022-01-21] MEDS: ACETAMINOPHEN 325 MG TABLET. PO PRN (22:03)
[2022-01-21 23:00] VITALS: BP 142/52
[2022-01-22 03:00] VITALS: BP 116/68
[2022-01-22] MEDS: IV DEXTROSE 5 %-0.45 % NACL 1,000 ML IV SCH (03:51)
[2022-01-22] MEDS: PIPERACILLIN/TAZOBACTAM 3.375 GM in IV NORMAL SALINE 50ML 50 ML IV SCH ×2 (05:16→11:28)
[2022-01-22 07:00] VITALS: BP 131/54
[2022-01-22] MEDS: SENNOSIDES/DOCUSATE 8.6/50MG TABLET. PO SCH (08:27)
[2022-01-22] MEDS: LACTOBACILLUS RHAMNOSUS GG 1 CAPSULE. PO SCH (08:37)
[2022-01-22] MEDS: ENOXAPARIN 40 MG/0.4 ML SYRINGE. SQ SCH (08:37)
[2022-01-22 10:38] VITALS: BP 136/45
--- NOTE | 2022-01-22 11:13 | SNU/HH DC ---
DISCHARGE WITH HOME HEALTH DISCHARGE INFORMATION: Discharge Date: Jan 22, 2022 Final Diagnosis: incarcerated inguinal hernia htn hyperlipids Problems Medical Problems: (1) Incarcerated left inguinal hernia Status: Acute Condition on Discharge: Stable CODE STATUS: Code Status: Full HOME HEALTH: Face to Face: I certify this patient is under my care and that I, had a face to face encounter that meets the physician face to face encounter requirements with this patient on 01/22 Medical Complications: Other (abdominal surgery) Mcc For: Assess & Educate Safety, Other: RN For Eval/Treatment: Yes Physical Therapy For: Evalulation/Treatment Occupational Therapy For: Evaluation/Treatment Pt Meets Homebound Status: Unsteady balance w/ amb,, Other: (recent surgery) POST DISCHARGE ORDERS: Activity Instructions for Disc: Resume previous activity, Activity as tolerated Weight Bearing Status after Di: No restrictions, Full weight bearing DIET AFTER DISCHARGE: Regular TREATMENT/EQUIPMENT ORDERS: Adaptive Equipment Issued: Front wheeled walker CERTIFICATION STATEMENT: Certification Statement: Certification Statement: Based on the above finding, I certify that this patient is confined to the home and needs intermittent detention care, physical therapy and/or speech therapy, or continues to need occupational therapy.~ This patient is under my care, and I have initiated the establishment of the plan of care.~ This patient will be followed by myself or a community physician who will periodically review the plan of care. Home Meds Active Scripts Triamcinolone Acetonide (TRIAMCINOLONE ACETONIDE 0.1% CREAM) 15 Gm Cream..g., 1 ZAC TP BID, #30 GM Prov:MEENA BLANCHARD APRN 01/12/22 Reported Medications [Tamsulosin] 0.4 CAP No Conflict Check, for bph 01/16/22 Atorvastatin Calcium (ATORVASTATIN CALCIUM) 40 Mg Tablet, 1 TAB PO DAILY for cholesterol 01/16/22 Pantoprazole Sodium (Pantoprazole Sodium) 40 Mg Tablet.dr, 1 TAB PO DAILY for gerd 01/16/22 Amlodipine Besylate (AMLODIPINE BESYLATE) 5 Mg Tablet, 1 TAB PO DAILY for htn 01/16/22 ELBA OLSEN MD Jan 22, 2022 11:13
--- NOTE | 2022-01-22 11:15 | PDOC3 ---
Discharge Summary Visit Information Date of Admission: Jan 16, 2022 Date of Discharge: Jan 22, 2022 Final Diagnosis Incarcerated left inguinal hernia with obstruction, sigmoid colon infarction prior constipation. recent admit history GERD hypertension hyperlipidemia Problems Medical Problems: (1) Incarcerated left inguinal hernia Status: Acute Brief Hospital Course Allergies Allergies Coded Allergies Type Severity Reaction Last Updated Verified No Known Drug Allergies 03/09/18 No Vital Signs Vital Signs Date Time Temp Pulse Resp B/P (MAP) Pulse Ox O2 Delivery O2 Flow Rate FiO2 01/22/22 10:38 97.9 67 24 136/45 (75) 96 Room Air 97.9 Brief Hospital Course Mr. Gamez is a 76 old male admit due to lower abdominal discomfort and constipation. New hernia with a bulge in the left groin. taken to OR Incarcerated left inguinal hernia with obstruction, sigmoid colon infarction Diagnostic laparoscopy, laparotomy with sigmoid colon resection, repair of incarcerated left inguinal hernia Dr. Means weakness and pain after, IV zosyn for 6 days str imrpoved, walked well with PT on 01/21 f/u Gen surg next week Discharge Information Condition at Discharge: Improved Follow Up: Weeks Disposition/Orders: D/C to Home w/ HH Scheduled Amlodipine Besylate (Amlodipine Besylate) 5 Mg Tablet, 1 TAB PO DAILY for htn, (Reported) Entered as Reported by: RYAN LOZANO on 01/16/221744 Last Action: New Order on 01/16/221744 by RYAN LOZANO Atorvastatin Calcium (Atorvastatin Calcium) 40 Mg Tablet, 1 TAB PO DAILY for cholesterol, (Reported) Entered as Reported by: RYAN LOZANO on 01/16/221744 Last Action: New Order on 01/16/221744 by RYAN LOZANO Pantoprazole Sodium (Pantoprazole Sodium) 40 Mg Tablet.dr, 1 TAB PO DAILY for gerd, (Reported) Entered as Reported by: RYAN LOZANO on 01/16/221744 Last Action: New Order on 01/16/221744 by RYAN LOZANO Triamcinolone Acetonide (Triamcinolone Acetonide 0.1% Cream) 15 Gm Cream..g., 1 ZAC TP BID, #30 Prescribed by: Maddison Covington APRN on 01/12/222147 Last Action: Reviewed on 01/16/221744 by RYAN LOZANO Miscellaneous Medications [Tamsulosin] 0.4 CAP, for bph, (Reported) Entered as Reported by: RYAN LOZANO on 01/16/221744 Last Action: New Order on 01/16/221744 by RYAN LOZANO Patient Instructions Patient Instructions 34 min face to face he told me I have terrible bedside manner and that I am very arrogant, I apologized Justicifation of Admission Dx: Justifications for Admission: Justification of Admission Dx: Yes ELBA OLSEN MD Jan 22, 2022 11:15
--- NOTE | 2022-01-22 13:13 | PDOC ---
PROGRESS NOTES Date of Service DATE: 01/22/22 TIME: 13:12 Subjective Subjective doing very well, ready to go home Objective Objective Vital Signs Date Time Temp Pulse Resp B/P (MAP) Pulse Ox O2 Delivery O2 Flow Rate FiO2 01/22/22 10:38 97.9 67 24 136/45 (75) 96 Room Air 97.9 01/17/22 19:40 2.0 Intake and Output 01/22/22 07:00 Intake Total 570 ml Output Total 600 ml Balance -30 ml Intake Oral 570 ml Output Urine Total 600 ml # Voids 2 # Bowel Movements 1 Physical Exam Abdomen: Soft Assessment Assessment Problems Medical Problems: (1) Incarcerated left inguinal hernia Status: Acute Plan Plan of Care ok to discharge Comment Review of Relevant I have reviewed the following items shwetha (where applicable) has been applied. Medications Current Medications Iohexol (Omnipaque 300 Mg/ml) 75 ml 1X ONCE IV Last administered on 01/16/22at 13:27; Start 01/16/22 at 13:00; Stop 01/16/22 at 13:03; Status DC Info (CONTRAST GIVEN -- Rx MONITORING) 1 each PRN DAILY PRN MC SEE COMMENTS; Start 01/16/22 at 13:00; Stop 01/18/22 at 12:59; Status DC Fentanyl Citrate (Fentanyl 2ml Vial) 25 mcg PRN Q5MIN PRN IVP MILD PAIN 1-3; Start 01/17/22 at 06:00; Stop 01/18/22 at 05:59; Status DC Fentanyl Citrate (Fentanyl 2ml Vial) 50 mcg PRN Q5MIN PRN IVP MODERATE PAIN 4- 6; Start 01/17/22 at 06:00; Stop 01/18/22 at 05:59; Status DC Morphine Sulfate (Morphine Sulfate) 1 mg PRN Q10MIN PRN IVP SEVERE PAIN 7-10; Start 01/17/22 at 06:00; Stop 01/18/22 at 05:59; Status DC Ringer's Solution 1,000 ml @ 30 mls/hr Q24H IV Last administered on 01/17/22at 10:00; Start 01/17/22 at 06:00; Stop 01/17/22 at 17:12; Status DC Hydromorphone HCl (Dilaudid) 0.5 mg PRN Q10MIN PRN IVP SEVERE PAIN 7-10, 2nd CHOICE; Start 01/17/22 at 06:00; Stop 01/18/22 at 05:59; Status DC Prochlorperazine Edisylate (Compazine) 5 mg PACU PRN PRN IVP NAUSEA, MRX1 Last administered on 01/17/22at 11:33; Start 01/17/22 at 06:00; Stop 01/18/22 at 05:59; Status DC Ondansetron HCl (Zofran) 4 mg PRN Q8HRS PRN IVP NAUSEA/VOMITING; Start 01/16/22 at 15:45; Stop 01/17/22 at 09:57; Status DC Morphine Sulfate (Morphine Sulfate) 4 mg PRN Q2HR PRN IVP PAIN; Start 01/16/22 at 15:45; Stop 01/17/22 at 15:44; Status DC Sodium Chloride 1,000 ml @ 100 mls/hr Q10H IV Last administered on 01/17/22at 11:45; Start 01/16/22 at 15:45; Stop 01/17/22 at 15:44; Status DC Ondansetron HCl (Zofran) 4 mg PRN Q6HRS PRN IVP NAUSEA/VOMITING; Start 01/16/22 at 16:15 Calcium Carbonate/ Glycine (Tums) 500 mg PRN Q3HRS PRN PO UPSET STOMACH; Start 01/16/22 at 16:15 Info (Non-Icu Electrolyte Protocol) 1 ea PRN DAILY PRN MC SEE COMMENTS; Start 01/16/22 at 16:15 Morphine Sulfate (Morphine Sulfate) 1 mg PRN Q1HR PRN IV PAIN; Start 01/16/22 at 16:15; Stop 01/19/22 at 10:27; Status DC Morphine Sulfate (Morphine Sulfate) 2 mg PRN Q1HR PRN IV PAIN; Start 01/16/22 at 16:15; Stop 01/19/22 at 10:26; Status DC Acetaminophen (Tylenol) 650 mg PRN Q6HRS PRN PO Headaches, Temp > 101.5F Last administered on 01/21/22at 22:03; Start 01/16/22 at 16:15 Senna/Docusate Sodium (Senna Plus) 1 tab BID PO ; Start 01/16/22 at 21:00 Sugammadex Sodium (Bridion) 200 mg 1X ONCE IVP ; Start 01/17/22 at 07:45; Stop 01/17/22 at 07:46; Status DC Piperacillin Sod/ Tazobactam Sod 3.375 gm/Sodium Chloride 50 ml @ 100 mls/hr 1X STAT IV Last administered on 01/17/22at 07:50; Start 01/17/22 at 07:33; Stop 01/17/22 at 08:02; Status DC Bupivacaine HCl/ Epinephrine Bitart (Sensorcain-Epi 0.5% Kit) 30 ml STK-MED ONCE INJ ; Start 01/17/22 at 07:59; Stop 01/17/22 at 08:00; Status Cancel Rocuronium Santa (Zemuron) 50 mg STK-MED ONCE .ROUTE ; Start 01/17/22 at 08:17; Stop 01/17/22 at 08:17; Status DC Naloxone HCl (Narcan) 0.4 mg PRN Q2MIN PRN IV SEE INSTRUCTIONS; Start 01/17/22 at 11:15 Sodium Chloride 1,000 ml @ 25 mls/hr Q24H IV Last administered on 01/17/22at 12:44; Start 01/17/22 at 11:15; Stop 01/17/22 at 17:11; Status DC Hydromorphone HCl 30 ml @ 0 mls/hr CONT PRN PRN IV PER PROTOCOL Last administered on 01/17/22at 12:33; Start 01/17/22 at 11:15; Stop 01/19/22 at 10:26; Status DC Piperacillin Sod/ Tazobactam Sod 3.375 gm/Sodium Chloride 50 ml @ 100 mls/hr Q6HRS IV Last administered on 01/22/22at 11:28; Start 01/17/22 at 13:00 Prochlorperazine Edisylate (Compazine) 10 mg STK-MED ONCE .ROUTE ; Start 01/17/22 at 11:29; Stop 01/17/22 at 11:30; Status DC Saliva Substitute (Biotene Moisturizing Mouth) 2 spray PRN Q15MIN PRN PO DRY MOUTH; Start 01/17/22 at 17:15 Ringer's Solution 1,000 ml @ 100 mls/hr Q10H IV Last administered on 01/18/22at 12:12; Start 01/17/22 at 17:15; Stop 01/18/22 at 13:06; Status DC Enoxaparin Sodium (Lovenox 40mg Syringe) 40 mg Q24H SQ Last administered on 01/22/22at 08:37; Start 01/18/22 at 09:00 Dextrose/Sodium Chloride 1,000 ml @ 100 mls/hr Q10H IV Last administered on 01/22/22at 03:51; Start 01/18/22 at 13:15 Oxycodone/ Acetaminophen (Percocet 5/325) 1 tab PRN Q4HRS PRN PO MODERATE TO SEVERE PAIN Last administered on 01/20/22at 01:25; Start 01/19/22 at 10:30 Morphine Sulfate (Morphine Sulfate) 2 mg PRN Q2HR PRN IVP MODERATE TO SEVERE PAIN; Start 01/19/22 at 10:30 Fentanyl Citrate (Fentanyl 2ml Vial) 100 mcg STK-MED ONCE .ROUTE ; Start 01/17/22 at 06:46; Stop 01/20/22 at 10:10; Status DC Lidocaine HCl (Lidocaine Pf 2% Vial) 5 ml STK-MED ONCE .ROUTE ; Start 01/17/22 at 06:47; Stop 01/20/22 at 10:10; Status DC Ondansetron HCl (Zofran) 4 mg STK-MED ONCE .ROUTE ; Start 01/17/22 at 06:47; Stop 01/20/22 at 10:10; Status DC Propofol (Diprivan) 200 mg STK-MED ONCE IV ; Start 01/17/22 at 06:47; Stop 01/20/22 at 10:10; Status DC Dexamethasone Sodium Phosphate (Decadron) 4 mg STK-MED ONCE .ROUTE ; Start 01/17/22 at 06:47; Stop 01/20/22 at 10:10; Status DC Bupivacaine HCl/ Epinephrine Bitart (Sensorcain-Epi 0.5% Kit) 30 ml STK-MED ONCE .ROUTE ; Start 01/17/22 at 07:08; Stop 01/20/22 at 10:10; Status DC Rocuronium Santa (Zemuron) 50 mg STK-MED ONCE .ROUTE ; Start 01/17/22 at 07:31; Stop 01/20/22 at 10:10; Status DC Hydromorphone HCl (Dilaudid) 2 mg STK-MED ONCE .ROUTE ; Start 01/17/22 at 08:52; Stop 01/20/22 at 10:10; Status DC Lactobacillus Rhamnosus (Culturelle) 1 cap BID PO Last administered on 01/22/22at 08:37; Start 01/21/22 at 21:00 Active Scripts Active Triamcinolone Acetonide 0.1% Cream (Triamcinolone Acetonide) 15 Gm Cream..g. 1 Radha TP BID Reported [Tamsulosin] 0.4 Cap Atorvastatin Calcium 40 Mg Tablet 1 Tab PO DAILY Pantoprazole Sodium 40 Mg Tablet.dr 1 Tab PO DAILY Amlodipine Besylate 5 Mg Tablet 1 Tab PO DAILY Vitals/I & O Vital Sign - Last 24 Hours 01/21/22 01/21/22 01/21/22 01/21/22 15:00 19:00 20:00 23:00 Temp 97.9 98.1 98.3 97.9 98.1 98.3 Pulse 67 66 68 Resp 18 18 18 B/P (MAP) 128/59 (82) 146/70 (95) 142/52 (82) Pulse Ox 97 98 96 O2 Delivery Room Air Room Air Room Air Room Air 01/22/22 01/22/22 01/22/22 01/22/22 03:00 07:00 07:42 10:38 Temp 98.0 97.8 97.9 98.0 97.8 97.9 Pulse 62 58 67 Resp 20 20 24 B/P (MAP) 116/68 (84) 131/54 (79) 136/45 (75) Pulse Ox 97 97 96 O2 Delivery Room Air Room Air Room Air Room Air Intake and Output 01/21/22 01/21/22 01/22/22 15:00 23:00 07:00 Intake Total 120 ml 450 ml Output Total 600 ml Balance 120 ml -150 ml Justifications for Admission Other Justification ISABEL SALAS MD Jan 22, 2022 13:13
--- NOTE | 2022-01-22 15:30 | NUR ---
Pt. discharged to home, verbalized understanding of discharge instructions.
== END 2022-01-22 15:49 | disposition home health service (06) | DRG 329 ==
LOC: ER 10:08 → 4 NORTH 14:00
PROVIDERS: ADMIT Student in an Organized Health Care Education/Training Program; ATTEND Student in an Organized Health Care Education/Training Program
PROC: 0YJ64ZZ Inspection of Left Inguinal Region, Percutaneous Endoscopic Approach (ICD-10-PCS; 2022-01-17)
PROC: 0YU60JZ Supplement Left Inguinal Region with Synthetic Substitute, Open Approach (ICD-10-PCS; principal; 2022-01-17 07:30)
PROC: 0DBN0ZZ Excision of Sigmoid Colon, Open Approach (ICD-10-PCS; 2022-01-17 07:30)
DX: K40.30 Unilateral inguinal hernia, with obstruction, without gangrene, not specified as recurrent (principal); K55.049 Acute infarction of large intestine, extent unspecified; K43.6 Other and unspecified ventral hernia with obstruction, without gangrene; K21.9 Gastro-esophageal reflux disease without esophagitis; Z20.822 Contact with and (suspected) exposure to COVID-19; E78.00 Pure hypercholesterolemia, unspecified; E78.5 Hyperlipidemia, unspecified; I10 Essential (primary) hypertension; K59.00 Constipation, unspecified; K80.20 Calculus of gallbladder without cholecystitis without obstruction; N40.0 Benign prostatic hyperplasia without lower urinary tract symptoms; N50.89 Other specified disorders of the male genital organs; Z82.49 Family history of ischemic heart disease and other diseases of the circulatory system; Z90.49 Acquired absence of other specified parts of digestive tract
CPT/HCPCS: 36415; 74177; 80048; 80053; 81001; 83605; 83690; 83735; 84100; 85025; 87428; 96365; 96366; 96367; 96375; A4213; A4314; A4930; A6402; C1781; J0780; J1100; J1170; J1650; J2405; J2543; J2704; J3010; J3490; J7030; J7042; J7120; Q9967; U0003; 97110-GP; 97116-GP; 97530-GO; 97535-GO; 99285-25; G0378